=== PATIENT | male | born 1940 | race Caucasian/White ===

== ENCOUNTER 2018-08-17 10:02 | Inpatient (IN) ==
[2018-08-17] MEDS ORDERED: Sod Chloride 0.9% Inj 1,000 ML IV.SIG ONE (11:00)
--- NOTE | 2018-08-17 11:08 | ED ---
HPI General Chief complaint: Nausea/Vomiting/Diarrhea Stated complaint: Vomitting/Doctor Sent Time Seen by Provider: 08/17/18 10:37 History of Present Illness HPI Narrative: This patient complains of nausea and vomiting. Duration is 6 hours. Severity is moderate. Yesterday he had a cystoscopy under anesthesia and had multiple polyps removed. He left the outpatient urology center with a Babb catheter. He woke up this morning with vomiting. He denies abdominal pain or fever. He is not short of breath or having any chest pain or pleuritic symptoms but he does have very poor room air saturations of 81. He is significantly hypoxic. He does have COPD denies productive cough or wheezing. He no longer smokes he does use inhalers at home. No alleviating factors. No exacerbating factors. Related Data Home Medications Medication Instructions Recorded Confirmed amlodipine 10 mg PO DAILY 08/17/18 08/17/18 cephalexin [Keflex] 500 mg PO BID 08/17/18 08/17/18 clopidogrel 75 mg PO DAILY 08/17/18 08/17/18 hydrocodone-acetaminophen 1 tab PO Q4H PRN 08/17/18 08/17/18 metoprolol tartrate 25 mg PO BID 08/17/18 08/17/18 Allergies Allergy/AdvReac Type Severity Reaction Status Date / Time No Known Allergies Allergy Verified 08/17/18 11:45 Review of Systems ROS: all other systems reviewed are negative [facility] Medical History Medical History Hypertension (Acute) PVD (peripheral vascular disease) (Acute) Social History Social History Substance History: No History of Abuse Second Hand Smoke Exposure: No Smoking Status: Former smoker How Often Do You Have a Drink Containing Alcohol: Never Recent Travel in [facility] within the Last 8 Weeks: No Recent Out of Country Travel within the Last 8 Weeks: No Immunization History Tetanus Immunization: <5 Years Tetanus Immunization Year if Known: 2016 Exam Narrative Exam Narrative: GENERAL: Well-nourished, well-developed patient in no apparent distress. SKIN: Focused skin assessment reveals no rash and nodules. Skin is Warm and dry. HEAD: Atraumatic. Normocephalic. EYES: Pupils equal and round. No scleral icterus. No injection or drainage. ENT: No nasal bleeding or discharge. Mucous membranes pink and moist. NECK: Trachea midline. No JVD. CARDIOVASCULAR: Regular rate and rhythm. No murmur appreciated. RESPIRATORY: No accessory muscle use. Clear to auscultation. Breath sounds equal bilaterally. GASTROINTESTINAL: Abdomen soft, non-tender, nondistended. Hepatic and splenic margins not palpable. Babb catheter in place with some bloody urine in it. MUSCULOSKELETAL: He has had a left BKA. No clubbing. No cyanosis. No edema. NEUROLOGICAL: Awake and alert. No obvious cranial nerve deficits. Motor grossly within normal limits. Normal speech. PSYCHIATRIC: Appropriate mood and affect; insight and judgment normal. Course Initial Documented Vital Signs Temperature 98.0 F 08/17/18 10:09 Pulse Rate 112 H 08/17/18 10:09 Blood Pressure 116/74 08/17/18 10:09 Pulse Oximetry 87 L 08/17/18 10:09 Last Documented Vital Signs Temperature 98.0 F 08/17/18 10:09 Pulse Rate 109 H 08/17/18 12:48 Respiratory Rate 17 08/17/18 12:48 Blood Pressure 124/73 08/17/18 12:48 Pulse Oximetry 88 L 08/17/18 12:48 Medical Decision Making MDM Narrative Medical decision making narrative: This is a 77-year-old male who complains of nausea and vomiting but is noted to be significantly hypoxic. He has COPD and no respiratory complaints at all. On 4 L nasal cannula he is in the low 90s. IV placed and labs sent. I have ordered him a couple of nebulizer treatments. I will review his chest x-ray. I gave him IV Zofran. Patient is significantly hypoxic and will require admission. Discussed with the hospitalist. We gave consideration to PE given his recent procedure but he also has no actual dyspnea or chest pain or pleuritic symptoms. His creatinine is elevated and he cannot get a CTA. Admitting physician is considering further diagnostics. He will require admission. His labs are reviewed. Creatinine is elevated as noted. Medical Screen Exam Complete: Yes Emergency Medical Condition: Yes Differential Diagnosis Differential Diagnosis: COPD, pneumonia, PE Medical Records Medical records reviewed: Yes I reviewed the patient's medical records. Lab Data Lab results reviewed: Yes I reviewed the patient's lab results. Lab results narrative: Patient has leukocytosis and renal insufficiency Result diagrams: 08/17/18 11:08 08/17/18 11:08 Lab Results 08/17/18 08/17/18 08/17/18 Range/Units 11:08 11:08 11:08 WBC 18.9 H (4.0-11.0) th/mm3 RBC 4.95 (4.50-5.90) mil/mm3 Hgb 16.1 (13.0-17.0) gm/dL Hct 46.1 (39.0-51.0) % MCV 93.0 (80.0-100.0) fL MCH 32.5 (27.0-34.0) pg MCHC 35.0 (32.0-36.0) % RDW 14.2 (11.6-17.2) % Plt Count 117 L (150-450) th/mm3 MPV 10.6 (7.0-11.0) fL Prelim Diff (Auto) Manual diff required WBC Differential Manual diff final Seg Neuts % (Manual) 86 H (16-70) % Band Neuts % (Manual) 1 (0-6) % Lymphocytes % (Manual) 6 L (9-44) % Monocytes % (Manual) 7 (0-8) % Abs Neuts (Manual) 16.4 H (1.8-7.7) th/mm3 Differential Comment . Platelet Estimate Low L (Normal) Platelet Morphology Enlarged H (Normal) RBC Morphology Normal (Normal) PT 12.2 H (9.8-11.6) sec INR 1.2 Ratio APTT 27.5 (24.3-30.1) sec Sodium 137 (136-145) meq/L Potassium 4.5 (3.5-5.1) meq/L Chloride 101 (98-107) meq/L Carbon Dioxide 25.2 (21.0-32.0) meq/L Anion Gap 11 (5-15) meq/L BUN 34 H (7-18) mg/dL Creatinine 2.15 H (0.60-1.30) mg/dL Estimated GFR 30 L (>89) mL/min Random Glucose 117 H (74-106) mg/dL Calcium 8.3 L (8.5-10.1) mg/dL Total Bilirubin 1.4 H (0.2-1.0) mg/dL AST 41 H (15-37) U/L ALT 34 (12-78) U/L Alkaline Phosphatase 86 (45-117) U/L Total Protein 7.6 (6.4-8.2) g/dL Albumin 3.5 (3.4-5.0) g/dL Imaging Data Attestation: I personally reviewed and interpreted this imaging study as follows : My impression: Chest x-ray shows atelectasis Radiologist's impression: Chest X-Ray 08/17/18 11:00 CONCLUSION: Lower lobe atelectasis. No acute infiltrate or mass ECG Data EKG Prior to Arrival: No Attestation: I personally reviewed and interpreted this ECG as follows: Prior ECG tracings: not available for review Interpretation: EKG shows sinus rhythm at 99. No ectopic beats. No ST elevation. [place] and [place] interval are normal Discharge Plan Discharge Disposition Patient Disposition: 30 Still Patient Discharge Details Diagnosis: Acute respiratory failure with hypoxia Physicians Team ED Provider: Murphy Roberts Primary Care Provider: Collin Rodriguez Rxs /Orders / Referrals /Forms Prescriptions: No Action hydrocodone-acetaminophen 5-325 mg Tablet 1 tab PO Q4H PRN (Reason: Pain) RF: 0 clopidogrel 75 mg Tablet 75 mg PO DAILY RF: 0 amlodipine 10 mg Tablet 10 mg PO DAILY RF: 0 cephalexin [Keflex] 500 mg Capsule 500 mg PO BID RF: 0 metoprolol tartrate 25 mg Tablet 25 mg PO BID RF: 0 Discharge Interventions Interventions: Vital Signs Last Done: 08/17/18 12:48 Status ED Status: With Doctor
--- NOTE | 2018-08-17 11:30 | XR ---
EXAM DATE: 08/17/2018 11:22 AM EDT AGE/SEX: 77 years / Male INDICATIONS: Shortness of breath after procedure yesterday. CLINICAL DATA: This is the patient's initial encounter. Patient reports that signs and symptoms have been present for 1 day and indicates a pain score of 0/10. MEDICAL/SURGICAL HISTORY: Hypertension. Peripheral vascular disease. CABG. [place] [facility] [place]. . FINDINGS: There are 7 intact sternal wires. Mild pulmonary vascular congestion. Arthritic changes left glenohum eral joint. Some atelectasis both lung bases. CONCLUSION: Lower lobe atelectasis. No acute infiltrate or mass Electronically signed by: Moris Powell MD 08/17/2018 11:29 AM EDT
[2018-08-17 11:49] LABS: Activated Partial Thrombo Time 27.5 sec (24.3-30.1); INR 1.2 Ratio; Prothrombin Time 12.2 sec (9.8-11.6)
[2018-08-17 11:56] LABS: Albumin 3.5 g/dL (3.4-5.0); Anion Gap 11 meq/L (5-15); Aspartate Aminotransferase 41 U/L (15-37); Blood Urea Nitrogen 34 mg/dL (7-18); Calcium 8.3 mg/dL (8.5-10.1); Carbon Dioxide 25.2 meq/L (21.0-32.0); Chloride 101 meq/L (98-107); Glomerular Filtration Rate 30 mL/min (>89); Glucose,Random 117 mg/dL (74-106); Potassium 4.5 meq/L (3.5-5.1); Sodium 137 meq/L (136-145)
[2018-08-17 11:57] LABS: Alanine Aminotransferase 34 U/L (12-78)
[2018-08-17 11:58] LABS: Hematocrit 46.1 % (39.0-51.0); Hemoglobin 16.1 gm/dL (13.0-17.0); Mean Corpuscular Hemoglobin 32.5 pg (27.0-34.0); Mean Platelet Volume 10.6 fL (7.0-11.0); Platelet Count 117 th/mm3 (150-450); Red Blood Count 4.95 mil/mm3 (4.50-5.90); Red Cell Distribution Width 14.2 % (11.6-17.2); White Blood Count 18.9 th/mm3 (4.0-11.0)
[2018-08-17 11:59] LABS: Alkaline Phosphatase 86 U/L (45-117); Total Protein 7.6 g/dL (6.4-8.2)
[2018-08-17 12:37] LABS: Lymphocytes 6 % (9-44); Monocytes 7 % (0-8); RBC Morphology Normal (Normal)
[2018-08-17] MEDS ORDERED: Acetaminophen 325 MG Tablet PO PRN (13:54)
[2018-08-17] MEDS: Sod Chloride 0.9% Inj 1,000 ML IV.CONT SCH (15:21)
[2018-08-17] MEDS: Heparin - SQ 10,000 UNITS/ML Vial SQ SCH ×2 (15:21→21:34)
--- NOTE | 2018-08-17 16:54 | P.HPIM ---
History of Present Illness Primary Care Physician: Collin Rodriguez Chief Complaint: Nausea and vomiting History of Present Illness: The patient is a 77-year-old male with a past medical history of CAD, PVD and COPD who is presenting to the hospital with nausea and vomiting. The patient said that he had a procedure with his urologist yesterday where he was cleaned out and had some polyps removed. He was discharged home with a Babb catheter in place that was supposed to remain for 5 days. Shortly after the procedure the patient developed nausea and vomiting. He said he had 8 bouts of vomiting and he described the vomitus as black in color. He said that he was unable to eat yesterday and was unable to hold pills down yesterday. He denied any associated abdominal pain or diarrhea. He called the urologist's office and was told to go to the hospital. He came to the emergency department today and felt much better after receiving IV fluids and nausea medication. The patient states that his breathing has been bad for about the past month or so. He says his primary care doctor gave him an inhaler. He denies any cough or fevers. He denies any swelling in his lower extremities. He has been sleeping well at night. He denies any shortness of breath on exertion. He says prior to the urological procedure yesterday he required an ultrasound of the heart which he had done as an outpatient. Inpatient Certification: I certify that the inpatient services were ordered in accordance with Medicare regulations governing the order. This includes certification that hospital inpatient services are reasonable and necessary and in the case of services not specified as inpatient-only under 42 CFR 419.22(n), that they are appropriately provided as inpatient services in accordance to with the 2-midnight benchmark under 43 CFR 412.3(e) Estimated Total Length of Stay (Days): 2 Plans for Post Hospital Care: Not yet determined Review of Systems All other systems reviewed negative except as stated in HPI PMFSH - History History Provided By: Patient - Medical History Medical History: Medical History (Last Updated 08/17/18 @ 16:59 by Terrence Ramon DO) Alcoholism CAD (coronary artery disease) COPD (chronic obstructive pulmonary disease) HLD (hyperlipidemia) History of left below knee amputation Hypertension PVD (peripheral vascular disease) Systolic CHF - Surgical History Surgical History: Surgical History (Last Updated 08/17/18 @ 16:53 by Terrence Ramon DO) S/P CABG x 4 - Family History Family History: Family History (Last Updated 08/17/18 @ 16:53 by Terrence Ramon DO) Other Alcoholism Diabetes - Social History I have reviewed the patient's Social History: Yes - Tobacco History Second Hand Smoke Exposure: No Smoking Status: Former smoker - Alcohol History How Often Do You Have a Drink Containing Alcohol: Never (Former drinker) - Substance Use History Substance History: No History of Abuse - Travel History Recent Travel in the [place] Within the Last 8 Weeks: No Recent Travel Out of the Country Within the Last 8 Weeks: No - Immunization History Tetanus Immunization: <5 Years Tetanus Immunization Year if Known: 2015 Medications and Allergies Active Medications: Active Medications Acetaminophen (Tylenol) 650 mg PO Q4H PRN PRN Reason: Temp > 100.4, pain 1-2 Hydrocodone Bitart/Acetaminophen ([place] 5/325) 1 tab PO Q4H PRN PRN Reason: pain 3-10 Last Admin: 08/17/18 15:21 Dose: 1 tab Albuterol (Duoneb Neb (Prn)) 1 ampul NEB Q2HR NEB PRN PRN Reason: DYSPNEA Albuterol (Duoneb Neb (Mando)) 1 ampul NEB Q6HR WHILE AWAKE NEB [facility] Budesonide/Formoterol Fumarate (Symbicort 80/4.5 Mcg Inh) 2 puff INH BID [facility] Clopidogrel Bisulfate (Plavix) 75 mg PO DAILY [facility] Heparin Sodium (Porcine) (Heparin Inj) 5,000 units SQ Q8HR [facility] Last Admin: 08/17/18 15:21 Dose: 5,000 units Ceftriaxone Sodium 1,000 mg/ (Sodium Chloride) 100 mls @ 200 mls/hr IV.SIG Q24H [facility] Last Infusion: 08/17/18 15:56 Dose: Infused Sodium Chloride (Ns Inj) 1,000 mls @ 75 mls/hr IV.CONT .[id number] [facility] Stop: 08/18/18 16:39 Last Admin: 08/17/18 15:21 Dose: 100 mls/hr Metoprolol Tartrate (Lopressor) 25 mg PO BID [facility] Ondansetron HCl (Zofran Inj) 4 mg IV.PUSH Q6H PRN PRN Reason: NAUSEA OR VOMITING Senna/Docusate Sodium (Loyda-Colace) 1 tab PO BID MANDO Sodium Chloride (Ns Flush) 2 ml IV.FLUSH PRN PRN PRN Reason: FLUSH AFTER USING IV ACCESS Allergies Allergy/AdvReac Type Severity Reaction Status Date / Time No Known Allergies Allergy Verified 08/17/18 11:45 Home Medications Medication Instructions Recorded Confirmed Type amlodipine 10 mg PO DAILY 08/17/18 08/17/18 History budesonide-formoterol [Symbicort] 2 puff INHALATION BID 08/17/18 08/17/18 History cephalexin [Keflex] 500 mg PO BID 08/17/18 08/17/18 History clopidogrel 75 mg PO DAILY 08/17/18 08/17/18 History hydrocodone-acetaminophen 1 tab PO Q4H PRN 08/17/18 08/17/18 History metoprolol tartrate 25 mg PO BID 08/17/18 08/17/18 History Exam Vital signs: Vital Signs 08/17/18 10:09 08/17/18 10:37 08/17/18 11:13 Temperature 98.0 F Pulse Rate 112 H 98 H 103 H Respiratory Rate 20 21 Blood Pressure 116/74 141/85 H Pulse Oximetry 87 L 90 L 90 L 08/17/18 12:48 08/17/18 15:19 08/17/18 15:35 Temperature Pulse Rate 109 H 92 H Respiratory Rate 17 22 Blood Pressure 124/73 139/90 Pulse Oximetry 88 L 90 L 90 L 08/17/18 16:11 Temperature Pulse Rate 108 H Respiratory Rate 18 Blood Pressure Pulse Oximetry Intake & Output 08/16/18 08/17/18 08/17/18 18:59 06:59 18:59 Intake Total 1100 / 1100 Output Total 400 / 400 Balance 700 / 700 Weight 84.822 kg Intake: IV 1100 / 1100 NS Inj 1,000 ML @ Wide Open IV. 1000 / 1000 SIG BOLUS ONE Rx#:[id number] Rocephin Inj 1,000 MG In NS Inj 100 / 100 100 ML @ 200 mls/hr IV.SIG Q24H MANDO Rx#:[id number] Output: Urine Amount (Catheter) 400 / 400 Indwelling Urethral Catheter 400 / 400 Narrative: GENERAL: Well-nourished, well-developed patient in no apparent distress. SKIN: Focused skin assessment reveals no rash and nodules. Skin is Warm and dry. HEAD: Atraumatic. Normocephalic. EYES: Pupils equal and round. No scleral icterus. No injection or drainage. ENT: No nasal bleeding or discharge. Mucous membranes pink and moist. NECK: Trachea midline. No JVD. CARDIOVASCULAR: Regular rate and rhythm. No murmur appreciated. RESPIRATORY: No accessory muscle use. Clear to auscultation. Decreased breath sounds bilaterally. GASTROINTESTINAL: Abdomen soft, non-tender, nondistended. Hepatic and splenic margins not palpable. MUSCULOSKELETAL: He has had a left BKA. No clubbing. No cyanosis. No edema. NEUROLOGICAL: Awake and alert. No obvious cranial nerve deficits. Motor grossly within normal limits. Normal speech. PSYCHIATRIC: Appropriate mood and affect; insight and judgment normal. Results - Labs CBC & Chem 7: 08/17/18 11:08 08/17/18 11:08 Labs: Short CBC 08/17/18 Range/Units 11:08 WBC 18.9 H (4.0-11.0) th/mm3 Hgb 16.1 (13.0-17.0) gm/dL Hct 46.1 (39.0-51.0) % Plt Count 117 L (150-450) th/mm3 BMP 08/17/18 11:08 Sodium 137 Potassium 4.5 Chloride 101 Carbon Dioxide 25.2 BUN 34 H Creatinine 2.15 H Calcium 8.3 L Cardiac Enzymes 08/17/18 Range/Units 15:19 Troponin I Less than 0.02 L (0.02-0.05) ng/mL Liver Function 08/17/18 Range/Units 11:08 Total Bilirubin 1.4 H (0.2-1.0) mg/dL AST 41 H (15-37) U/L ALT 34 (12-78) U/L Alkaline Phosphatase 86 (45-117) U/L Albumin 3.5 (3.4-5.0) g/dL - Imaging Impressions Chest X-Ray 08/17/18 11:00 CONCLUSION: Lower lobe atelectasis. No acute infiltrate or mass Caprini VTE Risk Assessment Caprini VTE Risk Assessment: Moderate/High Risk (score >= 2) Caprini Risk Assessment Model: Point Value = 1 Point Value = 2 Point Value = 3 Point Value = 5 Age 41-60 Minor surgery BMI > 25 kg/m2 Swollen legs Varicose veins or History of unexplained or recurrent spontaneous Oral contraceptives or hormone replacement Sepsis (< 1 month) Serious lung disease, including pneumonia (< 1 month) Abnormal pulmonary function Acute myocardial infarction Congestive heart failure (< 1 month) History of inflammatory bowel disease Medical patient at bed rest Age 61-74 Arthroscopic surgery Major open surgery (> 45 min) Laparoscopic surgery (> 45 min) Malignancy Confined to bed (> 72 hours) Immobilizing plaster cast Central venous access Age >= 75 History of VTE Family history of VTE Factor V Leiden Prothrombin [id number] Lupus anticoagulant Anticardiolipin antibodies Elevated serum homocysteine Heparin-induced thrombocytopenia Other congenital or acquired thrombophilia Stroke (< 1 month) Elective arthroplasty Hip, pelvis, or leg fracture Acute spinal cord injury (< 1 month) Prophylaxis Regimen: Total Risk Factor Score Risk Level Prophylaxis Regimen 0-1 Low Early ambulation 2 Moderate Order ONE of the following: *Sequential Compression Device (SCD) *Heparin 5000 units SQ BID 3-4 Higher Order ONE of the following medications: *Heparin 5000 units SQ TID *Enoxaparin/Lovenox 40 mg SQ daily (WT < 150 kg, CrCl > 30 mL/min) *Enoxaparin/Lovenox 30 mg SQ daily (WT < 150 kg, CrCl > 10-29 mL/min) *Enoxaparin/Lovenox 30 mg SQ BID (WT < 150 kg, CrCl > 30 mL/min) AND/OR *Sequential Compression Device (SCD) 5 or more Highest Order ONE of the following medications: *Heparin 5000 units SQ TID (Preferred with Epidurals) *Enoxaparin/Lovenox 40 mg SQ daily (WT < 150 kg, CrCl > 30 mL/min) *Enoxaparin/Lovenox 30 mg SQ daily (WT < 150 kg, CrCl > 10-29 mL/min) *Enoxaparin/Lovenox 30 mg SQ BID (WT < 150 kg, CrCl > 30 mL/min) AND *Sequential Compression Device (SCD) Assessment and Plan - Plan Acute hypoxemic respiratory failure The patient has a history of COPD. He also has a history of heart failure. Chest x-ray indicative of pulmonary congestion. He has diminished breath sounds on exam. He denies chest pain. EKG with normal sinus rhythm. -trend troponins. -telemetry. -oxygen and standing nebs. -obtain recent echo results. -check an ABG. -V/Q scan pending. -incentive spirometry. Nausea and vomiting Started following urology procedure, suspect s/t anesthesia. Improved at this time. -Zofran as needed. -ADAT. Acute renal failure Suspect s/t dehydration from N/V. -gentle IVFs as pt has a history of CHF. -check a UA, calculate FENa. -continue Babb, follow up with urology as scheduled. -continue ceftriaxone. Was on Keflex as an outpt. Systolic CHF/CAD Echo with EF 35-40% in 2014. Recently had another echo. -call PCP for recent echo reports. -monitor volume status while on IVFs. -trend trops. -continue cardiac regimen. -check a BNP. Leukocytosis May be reactive. -follow CBC. -continue ceftriaxone. -check UA. PPx: Heparin Code Status: Full
[2018-08-17 18:09] LABS: Bacteria,Urine Occasional /hpf; Bilirubin,Urine Negative (Negative); Clarity,Urine Hazy (Clear); Color,Urine Red (Yellw/Straw); Glucose,Urine (UA) Negative (Negative); Leukocyte Esterase,Urine Large (Negative); Mucus,Urine Few /lpf (Occasional); Nitrite,Urine Negative (Negative); Specific Gravity,Urine 1.015 (1.002-1.035)
[2018-08-17 18:29] LABS: Creatinine,Urine Random 100 mg/dL (27-300)
--- NOTE | 2018-08-17 19:56 | NM ---
EXAM DATE: 08/17/2018 7:49 PM EDT AGE/SEX: 77 years / Male INDICATIONS: Hypoxia. CLINICAL DATA: This is the patient's initial encounter. Patient reports that signs and symptoms have been present for 2 days and indicates a pain score of 0/10. MEDICAL/SURGICAL HISTORY: Hypertension. Chronic obstructive pulmonary disease. Peripheral vas cular disease. Coronary artery disease, systolic congestive heart failure. . CABG x4, Left below kn ee amputation. COMPARISON: No prior exams available for comparison. DOSE: 1.6 mCi Tc99m DTPA aerosol 8.8 mCi Tc99m DTPA aerosol TECHNIQUE: Following five minutes of tidal breathing of DTPA aerosol, planar images of the lungs wer e performed in eight projections. The patient was then injected with MAA, and eight-view perfusion s can was performed. FINDINGS: There is a moderate central deposition of the radiopharmaceutical with decreased activity noted in nyla th upper lobes. There is patchy uptake in the central portions of both lungs as well. The perfusion lung scan demonstrates a mildly inhomogeneous pattern of uptake in both lungs. There is decreased activity noted in both upper lobes matching the ventilatory abnormalities. This is nonsegm ental in distribution. CONCLUSION: 1. Intermediate probability for pulmonary embolism with matching nonsegmental defects in both upper lobes. 2. There is moderate central deposition of radiopharmaceutical on the ventilatory study indicating u nderlying lung disease. Electronically signed by: Terrence Gamboa MD 08/17/2018 7:55 PM EDT
[2018-08-17] MEDS: Metoprolol Tartrate 25 MG Tablet PO SCH (21:34)
[2018-08-17] MEDS: Senna/Docusate Sodium 8.6/50 MG Tablet PO SCH (21:34)
[2018-08-17] MEDS: Budesonide-Formoterol 80/4.5 MCG 6.9 GM Inhaler INH SCH (22:06)
[2018-08-18 00:54] LABS: ABG Base Excess 0.5 mmol/L (-2-2); ABG PCO2 41 mmHg (38-42); ABG PO2 60 mmHg (61-120)
[2018-08-18] MEDS ORDERED: Heparin 10,000 UNITS/10 ML Vial (for IV use) IV.PUSH STA (01:05)
[2018-08-18 01:53] LABS: Baso # (Auto) 0.1 th/mm3 (0.0-0.2); Baso % (Auto) 0.5 % (0.0-2.0); Eos % (Auto) 0.1 % (0.0-4.0); Hemoglobin 13.8 gm/dL (13.0-17.0); Lymph # (Auto) 0.8 th/mm3 (1.0-4.8); Lymph % (Auto) 6.2 % (9.0-44.0); Mean Corpuscular HGB Conc 32.7 % (32.0-36.0); Mean Corpuscular Hemoglobin 30.8 pg (27.0-34.0); Mean Corpuscular Volume 93.9 fL (80.0-100.0); Mean Platelet Volume 10.2 fL (7.0-11.0); Mono # (Auto) 1.5 th/mm3 (0.0-0.9); Mono % (Auto) 10.7 % (0.0-8.0); Neut # (Auto) 11.2 th/mm3 (1.8-7.7); Neut % (Auto) 82.5 % (16.0-70.0); Platelet Count 99 th/mm3 (150-450); Red Blood Count 4.48 mil/mm3 (4.50-5.90); Red Cell Distribution Width 14.3 % (11.6-17.2); White Blood Count 13.6 th/mm3 (4.0-11.0)
[2018-08-18 02:03] LABS: Activated Partial Thrombo Time 37.1 sec (23.4-31.7); INR 1.2 Ratio
[2018-08-18] MEDS: Sod Chloride 0.9% Inj 1,000 ML IV.CONT SCH ×2 (02:16→16:45)
[2018-08-18 02:23] LABS: Albumin 2.6 g/dL (3.4-5.0); Calcium 7.4 mg/dL (8.5-10.1); Carbon Dioxide 25.7 meq/L (21.0-32.0); Potassium 3.8 meq/L (3.5-5.1); Total Protein 5.9 g/dL (6.4-8.2)
[2018-08-18] MEDS: Heparin Drip 25,000 UNIT/250 ML BAG IV.CONT PRN (02:34)
[2018-08-18 03:33] LABS: RBC Morphology Normal (Normal)
[2018-08-18 03:34] LABS: Platelet Morphology Normal (Normal)
[2018-08-18] MEDS: amLODIPine 10 MG Tablet PO SCH (09:05)
[2018-08-18] MEDS: Senna/Docusate Sodium 8.6/50 MG Tablet PO SCH ×2 (09:05→20:09)
[2018-08-18] MEDS: Metoprolol Tartrate 25 MG Tablet PO SCH ×2 (09:06→20:09)
[2018-08-18] MEDS: Budesonide-Formoterol 80/4.5 MCG 6.9 GM Inhaler INH SCH ×2 (09:08→21:05)
[2018-08-18 09:16] LABS: Hematocrit 42.5 % (39.0-51.0); Hemoglobin 14.5 gm/dL (13.0-17.0); Mean Corpuscular HGB Conc 34.2 % (32.0-36.0); Mean Corpuscular Hemoglobin 31.9 pg (27.0-34.0); Mean Corpuscular Volume 93.3 fL (80.0-100.0); Mean Platelet Volume 10.6 fL (7.0-11.0); Platelet Count 98 th/mm3 (150-450); Red Blood Count 4.55 mil/mm3 (4.50-5.90); Red Cell Distribution Width 14.5 % (11.6-17.2); White Blood Count 14.3 th/mm3 (4.0-11.0)
--- NOTE | 2018-08-18 09:43 | XR ---
EXAM DATE: 08/18/2018 9:38 AM EDT AGE/SEX: 77 years / Male INDICATIONS: Shortness of breath. Vomiting. CLINICAL DATA: This is the patient's subsequent encounter. Patient reports that signs and symptoms h ave been present for 2 days and indicates a pain score of 8/10. MEDICAL/SURGICAL HISTORY: . Hypertension. Peripheral vascular disease. CABG. Kidney surgery. B elow knee amputation. COMPARISON: [facility], CHEST 1V SINGLE AP, 08/17/2018. . FINDINGS: Improved diffuse interstitial prominence and persistent mild bibasilar airspace disease. Cardiomedias tinal contours are stable. Remainder of the exam is unchanged. CONCLUSION: 1. Improved positive fluid balance. 2. Persistent mild bibasilar airspace disease, presumably atelectasis. Electronically signed by: Christopher Saldana MD 08/18/2018 9:41 AM EDT
[2018-08-18] MEDS: Azithromycin 250 MG Tablet PO SCH (13:56)
--- NOTE | 2018-08-18 14:21 | P.PN ---
Subjective Interval history: Follow-up for hematuria, hypoxic respiratory failure, PE. Patient is currently resting in bed. With Ventimask on his oxygen saturation is hovering around 89- 90%. Sometimes goes to 87% when he tries to talk. He has a Babb catheter in continues to have bleeding. Patient is status post urological procedure in the outpatient setting. Physical Exam Vital signs: Vital Signs 08/17/18 15:19 08/17/18 15:35 08/17/18 16:11 Temperature Pulse Rate 92 H 108 H Respiratory Rate 22 18 Blood Pressure 139/90 Pulse Oximetry 90 L 90 L 08/17/18 17:36 08/17/18 20:00 08/18/18 00:00 Temperature 98.0 F Pulse Rate 109 H 109 H Respiratory Rate 15 Blood Pressure 132/80 Pulse Oximetry 90 L 90 L 08/18/18 00:48 08/18/18 01:42 08/18/18 01:46 Temperature Pulse Rate 102 H Respiratory Rate 25 H Blood Pressure Pulse Oximetry 93 L 94 L 95 08/18/18 04:00 08/18/18 04:08 08/18/18 07:40 Temperature 98.0 F Pulse Rate 104 H 108 H Respiratory Rate 16 Blood Pressure 130/79 Pulse Oximetry 94 L 95 94 L 08/18/18 08:00 08/18/18 09:31 08/18/18 09:36 Temperature 98.3 F Pulse Rate 113 H 112 H Respiratory Rate 26 H 18 20 Blood Pressure 144/73 H Pulse Oximetry 93 L 08/18/18 12:00 08/18/18 12:54 08/18/18 14:02 Temperature 98.5 F Pulse Rate 108 H 108 H Respiratory Rate 24 18 22 Blood Pressure 116/74 Pulse Oximetry 95 98 Intake & Output 08/17/18 08/18/18 08/18/18 18:59 06:59 18:59 Intake Total 1540 / 1540 1450 / 1450 1135 / 1135 Output Total 600 / 600 1000 / 1000 Balance 940 / 940 450 / 450 1135 / 1135 Weight 84.82 kg 84.3 kg Intake: IV 1100 / 1100 1000 / 1000 1135 / 1135 Heparin/D5W 25,000 U/250 mL 25, 135 / 135 000 unit In 250 ml @ 1,500 UNITS/HR 15 mls/hr IV.CONT TITRATE PRN Rx#:[id number] NS Inj 1,000 ML @ 75 mls/hr IV. 1000 / 1000 1000 / 1000 CONT .[id number] [facility] Rx#:[id number] NS Inj 1,000 ML @ Wide Open IV. 1000 / 1000 SIG BOLUS ONE Rx#:[id number] Rocephin Inj 1,000 MG In NS Inj 100 / 100 100 ML @ 200 mls/hr IV.SIG Q24H [facility] Rx#:[id number] Oral 440 / 440 450 / 450 Output: Urine 1000 / 1000 Urine Amount (Catheter) 600 / 600 Indwelling Urethral Catheter 600 / 600 Other: Date of Last Bowel Movement 08/17/18 08/17/18 08/17/18 # Bowel Movements 0 Weight On Admission 84.82 kg Narrative: GENERAL: Alert, oriented x3, NAD. SKIN: Warm and dry. HEAD: Normocephalic. EYES: No scleral icterus. No injection or drainage. NECK: Supple, trachea midline. No JVD or lymphadenopathy. CARDIOVASCULAR: Regular rate and rhythm without murmurs, gallops, or rubs. RESPIRATORY: Poor air entry, no appreciable wheezing. No accessory muscle use. GASTROINTESTINAL: Abdomen soft, non-tender, nondistended. MUSCULOSKELETAL: No cyanosis, or edema. : Babb catheter in place. Visible hematuria. BACK: Nontender without obvious deformity. No CVA tenderness. - Urinary Catheter Management Indwelling Urethral Catheter Cath placed during this visit: no Reason for continuing: Other continuation reason Results - Labs CBC & Chem 7: 08/18/18 08:35 08/18/18 01:39 Laboratory Results - last 24 hr 08/17/18 08/17/18 08/17/18 11:08 15:19 17:13 WBC RBC Hgb Hct MCV MCH MCHC RDW Plt Count MPV Prelim Diff (Auto) Neut % (Auto) Lymph % (Auto) [place] % (Auto) Eos % (Auto) Baso % (Auto) Neut # (Auto) Lymph # (Auto) [place] # (Auto) Eos # (Auto) Baso # (Auto) WBC Differential Diff Scan Differential Comment Platelet Estimate Platelet Morphology RBC Morphology PT INR APTT Puncture Site Patient Temperature O2 Saturation ABG pH ABG pCO2 ABG pO2 ABG HCO3 ABG O2 Content ABG Base Excess ABG Methemoglobin Alfredo Test Hemoglobin Carboxyhemoglobin O2 Delivery Device Liter Flow Inspired O2 Critical Value Sodium Potassium Chloride Carbon Dioxide Anion Gap BUN Creatinine Estimated GFR Random Glucose Calcium Prot Corrected Calcium Total Bilirubin AST ALT Alkaline Phosphatase Troponin I Less than 0.02 L B-Natriuretic Peptide 157 H Total Protein Albumin Urine Color Red Urine Clarity Hazy H Urine pH 6.0 Ur Specific [place] 1.015 Urine Protein 100 H Urine Glucose (UA) Negative Urine Ketones Negative Urine Occult Blood Large H Urine Nitrate Negative Urine Bilirubin Negative Urine Urobilinogen Less than 2 Ur Leukocyte Esterase Large H Urine RBC Urine WBC 122 H Urine WBC Clumps Rare H Urine Bacteria Occasional H Urine Mucus Few H Micro UA Comment Culture indicated Ur Microscopic Review Not Reportable Urine Culture Comments Culture indicated Ur Random Creatinine Ur Random Sodium 08/17/18 08/17/18 08/18/18 17:13 20:07 00:40 WBC RBC Hgb Hct MCV MCH MCHC RDW Plt Count MPV Prelim Diff (Auto) Neut % (Auto) Lymph % (Auto) [place] % (Auto) Eos % (Auto) Baso % (Auto) Neut # (Auto) Lymph # (Auto) [place] # (Auto) Eos # (Auto) Baso # (Auto) WBC Differential Diff Scan Differential Comment Platelet Estimate Platelet Morphology RBC Morphology PT INR APTT Puncture Site Left radial Patient Temperature 98.6 O2 Saturation 87 L* ABG pH 7.39 ABG pCO2 41 ABG pO2 60 L ABG HCO3 25 ABG O2 Content 17.2 ABG Base Excess 0.5 ABG Methemoglobin 1.1 Alfredo Test Present Hemoglobin 14.0 Carboxyhemoglobin 2.1 O2 Delivery Device Venti mask Liter Flow 6.00 Inspired O2 50 Critical Value Yes Sodium Potassium Chloride Carbon Dioxide Anion Gap BUN Creatinine Estimated GFR Random Glucose Calcium Prot Corrected Calcium Total Bilirubin AST ALT Alkaline Phosphatase Troponin I Less than 0.02 L B-Natriuretic Peptide Total Protein Albumin Urine Color Urine Clarity Urine pH Ur Specific [place] Urine Protein Urine Glucose (UA) Urine Ketones Urine Occult Blood Urine Nitrate Urine Bilirubin Urine Urobilinogen Ur Leukocyte Esterase Urine RBC Urine WBC Urine WBC Clumps Urine Bacteria Urine Mucus Micro UA Comment Ur Microscopic Review Urine Culture Comments Ur Random Creatinine 100 Ur Random Sodium 45 08/18/18 08/18/18 08/18/18 01:39 01:39 01:39 WBC 13.6 H RBC 4.48 L Hgb 13.8 D Hct 42.0 MCV 93.9 MCH 30.8 MCHC 32.7 RDW 14.3 Plt Count 99 L MPV 10.2 Prelim Diff (Auto) Slide review pending Neut % (Auto) 82.5 H Lymph % (Auto) 6.2 L [place] % (Auto) 10.7 H Eos % (Auto) 0.1 Baso % (Auto) 0.5 Neut # (Auto) 11.2 H Lymph # (Auto) 0.8 L [place] # (Auto) 1.5 H Eos # (Auto) 0.0 Baso # (Auto) 0.1 WBC Differential . Diff Scan Auto diff confirmed Differential Comment . Platelet Estimate Low L Platelet Morphology Normal RBC Morphology Normal PT 12.0 H INR 1.2 APTT 37.1 H D Puncture Site Patient Temperature O2 Saturation ABG pH ABG pCO2 ABG pO2 ABG HCO3 ABG O2 Content ABG Base Excess ABG Methemoglobin Alfredo Test Hemoglobin Carboxyhemoglobin O2 Delivery Device Liter Flow Inspired O2 Critical Value Sodium 142 Potassium 3.8 Chloride 108 H Carbon Dioxide 25.7 Anion Gap 8 BUN 29 H Creatinine 2.01 H Estimated GFR 32 L Random Glucose 113 H Calcium 7.4 L* D Prot Corrected Calcium 8.1 L Total Bilirubin 0.8 AST 26 ALT 25 Alkaline Phosphatase 65 Troponin I B-Natriuretic Peptide Total Protein 5.9 L D Albumin 2.6 L D Urine Color Urine Clarity Urine pH Ur Specific [place] Urine Protein Urine Glucose (UA) Urine Ketones Urine Occult Blood Urine Nitrate Urine Bilirubin Urine Urobilinogen Ur Leukocyte Esterase Urine RBC Urine WBC Urine WBC Clumps Urine Bacteria Urine Mucus Micro UA Comment Ur Microscopic Review Urine Culture Comments Ur Random Creatinine Ur Random Sodium 08/18/18 08/18/18 08/18/18 08:35 10:44 12:43 WBC 14.3 H RBC 4.55 Hgb 14.5 Hct 42.5 MCV 93.3 MCH 31.9 MCHC 34.2 RDW 14.5 Plt Count 98 L MPV 10.6 Prelim Diff (Auto) Neut % (Auto) Lymph % (Auto) [place] % (Auto) Eos % (Auto) Baso % (Auto) Neut # (Auto) Lymph # (Auto) [place] # (Auto) Eos # (Auto) Baso # (Auto) WBC Differential Diff Scan Differential Comment Platelet Estimate Platelet Morphology RBC Morphology PT INR APTT 187.2 H* D 106.2 H* D Puncture Site Patient Temperature O2 Saturation ABG pH ABG pCO2 ABG pO2 ABG HCO3 ABG O2 Content ABG Base Excess ABG Methemoglobin Alfredo Test Hemoglobin Carboxyhemoglobin O2 Delivery Device Liter Flow Inspired O2 Critical Value Sodium Potassium Chloride Carbon Dioxide Anion Gap BUN Creatinine Estimated GFR Random Glucose Calcium Prot Corrected Calcium Total Bilirubin AST ALT Alkaline Phosphatase Troponin I B-Natriuretic Peptide Total Protein Albumin Urine Color Urine Clarity Urine pH Ur Specific [place] Urine Protein Urine Glucose (UA) Urine Ketones Urine Occult Blood Urine Nitrate Urine Bilirubin Urine Urobilinogen Ur Leukocyte Esterase Urine RBC Urine WBC Urine WBC Clumps Urine Bacteria Urine Mucus Micro UA Comment Ur Microscopic Review Urine Culture Comments Ur Random Creatinine Ur Random Sodium Microbiology 08/17/18 17:13 Clean Catch Urine Urine Culture - Preliminary No growth in 24 hours - Imaging Impressions Pulmonary Perfusion Imaging 08/17/18 00:00 CONCLUSION: 1. Intermediate probability for pulmonary embolism with matching nonsegmental defects in both upper lobes. 2. There is moderate central deposition of radiopharmaceutical on the ventilatory study indicating underlying lung disease. Chest X-Ray 08/18/18 08:37 CONCLUSION: 1. Improved positive fluid balance. 2. Persistent mild bibasilar airspace disease, presumably atelectasis. Assessment and Plan - Plan Mr. Mendoza is a pleasant 77-year-old male with a history of CAD, PVD, COPD who presented to the emergency department on 08/17/2018 due to nausea vomiting where he vomited coffee-ground materials. Patient reports undergoing procedure with his urologist on 08/16/2018. ED evaluation indicated patient was hypoxic and tachycardic. Due to his creatinine around 2.0, patient underwent VQ scan which shows intermediate probability for PE. Patient was in hypoxic respiratory failure. Acute hypoxic respiratory failure Probable pulmonary embolism -Patient is requiring Ventimask to maintain O2 saturation around 88-90%. -Continue DuoNeb, supplemental oxygen. -Continue heparin drip. -Due to patient's hypoxia, requirement of Ventimask as well as hematuria we will transfer patient to ICU. -I discussed with ICU attending (Dr. Limon) who was kind enough to accept this patient to his service. -Patient does have leukocytosis. We will continue him on Ceftriaxone 2g and Azithromycin. Possible UTI Hematuria -Follow cultures. Pt is already on Ceftriaxone. -Consult Urology. Gastritis Probable upper GI bleed -Currently Hgb is stable. -Consider GI consult in near future if Hgb drops or hematemesis occurs. Acute kidney injury -Baseline creatinine unknown. Creatinine 2.15 --> 2.01. -Continue to monitor. Coronary artery disease status post CABG Systolic congestive heart failure, currently compensated. -2014, echo shows ejection fraction 35-40%. Full code. Heparin drip.
--- NOTE | 2018-08-18 15:25 | P.CONCC ---
History of Present Illness Service: Critical Care Medicine Reason for Consult: Hypoxemia Primary Care Provider: Collin Rodriguez Chief Complaint: Nausea and vomiting History of Present Illness: The patient arrived to ED complaining of nausea and vomiting. The day prior he had a cystoscopy under anesthesia and had multiple polyps removed. He left the outpatient urology center with a Babb catheter. He woke up this morning with vomiting. He denies abdominal pain or fever. He is not short of breath or having any chest pain or pleuritic symptoms but he does have very poor room air saturations of 81. He is significantly hypoxic. He does have COPD denies productive cough or wheezing. He no longer smokes he does use inhalers at home. No alleviating factors. No exacerbating factors. 08/18: Worsening hypoxemia today requiring NRBM. V/Q scan is medium probability for pulmonary embolism after identifying bilateral upper lobe mismatches consistent with pulmonary embolus. Transferred to [facility] for higher level of care. Heparin gtt infusing. I met him on his arrival and talk to Dr. Joseph about his care. He is presently on a Ventimask delivering 45% oxygen with saturation in the range of 90-91 percent. He is warm and well-perfused. Review of Systems No nausea anymore but he had did have a lot of vomiting with nausea the day of admission. No chest pain. He is short of breath. [facility] - History History Provided By: Patient - Medical History Medical History: Medical History (Last Updated 08/17/18 @ 16:59 by Terrence Ramon DO) Alcoholism CAD (coronary artery disease) COPD (chronic obstructive pulmonary disease) HLD (hyperlipidemia) History of left below knee amputation Hypertension PVD (peripheral vascular disease) Systolic CHF - Surgical History Surgical History: Surgical History (Last Reviewed 08/17/18 @ 16:59 by Ginna Parry RN) S/P CABG x 4 - Family History Family History: Family History (Last Updated 08/17/18 @ 16:53 by Terrence Ramon DO) Other Alcoholism Diabetes - Tobacco History Second Hand Smoke Exposure: No Tobacco Use In Past 30 Days: No Smoking Status: Former smoker Tobacco Type: Cigarettes - Alcohol History How Often Do You Have a Drink Containing Alcohol: Never (Former drinker) - Substance Use History Substance History: No History of Abuse - Substance Use Type Alcohol Status: Sustained Remission Route Used: By Mouth - Travel History Recent Travel in the [facility] Within the Last 8 Weeks: No Recent Travel Out of the Country Within the Last 8 Weeks: No - Immunization History Tetanus Immunization: <5 Years Tetanus Immunization Year if Known: 2015 Hx Influenza Vaccine This Season: Yes Medications and Allergies Active Medications: Active Medications Acetaminophen (Tylenol) 650 mg PO Q4H PRN PRN Reason: Temp > 100.4, pain 1-2 Hydrocodone Bitart/Acetaminophen ([place] 5/325) 1 tab PO Q4H PRN PRN Reason: pain 3-10 Last Admin: 08/18/18 09:06 Dose: 1 tab Albuterol (Duoneb Neb (Prn)) 1 ampul NEB Q2HR NEB PRN PRN Reason: DYSPNEA Last Admin: 08/18/18 01:39 Dose: 1 ampul Albuterol (Duoneb Neb (Mando)) 1 ampul NEB Q6HR WHILE AWAKE NEB [facility] Last Admin: 08/18/18 12:51 Dose: 1 ampul Amlodipine Besylate (Norvasc) 10 mg PO DAILY [facility] Last Admin: 08/18/18 09:05 Dose: 10 mg Azithromycin (Zithromax) 500 mg PO DAILY [facility] Last Admin: 08/18/18 13:56 Dose: 500 mg Budesonide/Formoterol Fumarate (Symbicort 80/4.5 Mcg Inh) 2 puff INH BID [facility] Last Admin: 08/18/18 09:08 Dose: 2 puff Heparin Sodium/Dextrose (Heparin/D5w 25,000 U/250 Ml) 25,000 unit in 250 mls @ 15 mls/hr IV.CONT TITRATE PRN; Protocol PRN Reason: Per Protocol Last Titration: 08/18/18 11:37 Dose: 0 units/hr, 0 mls/hr Ceftriaxone Sodium 2,000 mg/ (Sodium Chloride) 100 mls @ 200 mls/hr IV.SIG Q24H [facility] Last Infusion: 08/18/18 14:26 Dose: Infused Metoprolol Tartrate (Lopressor) 25 mg PO BID [facility] Last Admin: 08/18/18 09:06 Dose: 25 mg Ondansetron HCl (Zofran Inj) 4 mg IV.PUSH Q6H PRN PRN Reason: NAUSEA OR VOMITING Senna/Docusate Sodium (Loyda-Colace) 1 tab PO BID [facility] Last Admin: 08/18/18 09:05 Dose: 1 tab Sodium Chloride (Ns Flush) 2 ml IV.FLUSH PRN PRN PRN Reason: FLUSH AFTER USING IV ACCESS Allergies Allergy/AdvReac Type Severity Reaction Status Date / Time No Known Allergies Allergy Verified 08/17/18 11:45 Home Medications Medication Instructions Recorded Confirmed Type amlodipine 10 mg PO DAILY 08/17/18 08/17/18 History budesonide-formoterol [Symbicort] 2 puff INHALATION BID 08/17/18 08/17/18 History cephalexin [Keflex] 500 mg PO BID 08/17/18 08/17/18 History clopidogrel 75 mg PO DAILY 08/17/18 08/17/18 History hydrocodone-acetaminophen 1 tab PO Q4H PRN 08/17/18 08/17/18 History metoprolol tartrate 25 mg PO BID 08/17/18 08/17/18 History Physical Exam Vital signs: Vital Signs 08/17/18 15:35 08/17/18 16:11 08/17/18 17:36 Temperature Pulse Rate 108 H Respiratory Rate 18 Blood Pressure Pulse Oximetry 90 L 90 L 08/17/18 20:00 08/18/18 00:00 08/18/18 00:48 Temperature 98.0 F Pulse Rate 109 H 109 H Respiratory Rate 15 Blood Pressure 132/80 Pulse Oximetry 90 L 93 L 08/18/18 01:42 08/18/18 01:46 08/18/18 04:00 Temperature 98.0 F Pulse Rate 102 H 104 H Respiratory Rate 25 H 16 Blood Pressure 130/79 Pulse Oximetry 94 L 95 94 L 08/18/18 04:08 08/18/18 07:40 08/18/18 08:00 Temperature 98.3 F Pulse Rate 108 H 113 H Respiratory Rate 26 H Blood Pressure 144/73 H Pulse Oximetry 95 94 L 93 L 08/18/18 09:31 08/18/18 09:36 08/18/18 12:00 Temperature 98.5 F Pulse Rate 112 H 108 H Respiratory Rate 18 20 24 Blood Pressure 116/74 Pulse Oximetry 95 08/18/18 12:54 08/18/18 14:02 Temperature Pulse Rate 108 H Respiratory Rate 18 22 Blood Pressure Pulse Oximetry 98 Intake & Output 08/17/18 08/18/18 08/18/18 18:59 06:59 18:59 Intake Total 1540 / 1540 1450 / 1450 1235 / 1235 Output Total 600 / 600 1000 / 1000 Balance 940 / 940 450 / 450 1235 / 1235 Weight 84.82 kg 84.3 kg Intake: IV 1100 / 1100 1000 / 1000 1235 / 1235 Heparin/D5W 25,000 U/250 mL 25, 135 / 135 000 unit In 250 ml @ 1,500 UNITS/HR 15 mls/hr IV.CONT TITRATE PRN Rx#:[id number] NS Inj 1,000 ML @ 75 mls/hr IV. 1000 / 1000 1000 / 1000 CONT .[id number] [facility] Rx#:[id number] NS Inj 1,000 ML @ Wide Open IV. 1000 / 1000 SIG BOLUS ONE Rx#:[id number] Rocephin Inj 1,000 MG In NS Inj 100 / 100 100 ML @ 200 mls/hr IV.SIG Q24H [facility] Rx#:[id number] Rocephin Inj 2,000 MG In NS Inj 100 / 100 100 ML @ 200 mls/hr IV.SIG Q24H [facility] Rx#:[id number] Oral 440 / 440 450 / 450 Output: Urine 1000 / 1000 Urine Amount (Catheter) 600 / 600 Indwelling Urethral Catheter 600 / 600 Other: Date of Last Bowel Movement 08/17/18 08/17/18 08/17/18 # Bowel Movements 0 Weight On Admission 84.82 kg Narrative: GENERAL: Frail-appearing elderly patient in mild respiratory distress. SKIN: Focused skin assessment reveals no rash or nodules. Skin is Warm and dry. HEAD: Atraumatic. Normocephalic. EYES: Pupils equal and round. No conjunctival icterus. No injection or drainage. ENT: No nasal bleeding or discharge. Mucous membranes pink and moist. NECK: Trachea midline. Airway widely patent, no stridor or obstructive noises. CARDIOVASCULAR: Regular rate and rhythm. No murmur appreciated. Neck veins are flat. RESPIRATORY: Minimal accessory muscle use. No wheezes. Decreased breath sounds bilaterally. GASTROINTESTINAL: Abdomen soft, non-tender, nondistended. No guarding, bowel sounds active MUSCULOSKELETAL: He has had a left BKA. No clubbing. No cyanosis. No edema. Nailbeds are pink. NEUROLOGICAL: Awake and alert. No obvious cranial nerve deficits. Motor grossly within normal limits. Normal speech. Oriented x3. PSYCHIATRIC: Appropriate mood and affect; insight and judgment normal. Very anxious. - Urinary Catheter Management Indwelling Urethral Catheter Cath placed during this visit: no Reason for continuing: Other continuation reason Assessment and Plan - Assessment and Plan Plan: Assessment and Plan - Plan Acute hypoxemic respiratory failure. COPD, not exacerbated -oxygen delivery Via Ventimask and standing nebs. -check an ABG. -V/Q scan pending -medium probability -incentive spirometry. Nausea and vomiting Started following urology procedure, suspect s/t anesthesia. Improved at this time. -Zofran as needed. -ADAT. Acute renal failure Suspect s/t dehydration from N/V. -gentle IVFs as pt has a history of CHF. -continue Babb, follow up with urology as scheduled. -continue ceftriaxone. Was on Keflex as an outpt. Chronic systolic heart failure Echo with EF 35-40% in 2014. Recently had another echo. -monitor volume status while on IVFs. -trend trops. -continue cardiac regimen. -check a BNP. Leukocytosis May be reactive. -follow CBC. -continue ceftriaxone. -check UA. PPx: Heparin infusion Code Status: Full Overall impression: This gentleman is critically ill with marginal pulmonary and cardiac status. He has been further stressed by an acute exacerbation of his chronic hypoxemic respiratory failure and may well require intubation and mechanical ventilation. We will treat the mismatches on his VQ scan as acute emboli and continue full anticoagulation with heparin. He has some minor hematuria related to recent bladder biopsies and arrived to the hospital with a Babb catheter in place. Critical care 38 minutes aside from procedures.
[2018-08-18 17:39] LABS: Hemoglobin 14.1 gm/dL (13.0-17.0)
--- NOTE | 2018-08-18 17:46 | P.CONURO ---
History of Present Illness Service: Consult date: 08/18/18 Requesting Physician: Symone Joseph Reason for Consult: Hematuria Primary Care Provider: Collin Rodriguez Chief Complaint: Nausea and vomiting History of Present Illness: 77-year-old gentleman with multiple medical problems who is status post what appears to be cystoscopy and transurethral resection of multiple bladder tumors on August 16 of this year by Dr. Berumen. Patient presented to the emergency room with complaints of nausea and vomiting and was noted to be hypoxic. Further workup included a VQ scan consistent with intermediate probability of pulmonary embolus and patient started on heparin therapy. Subsequent to this the patient was noted to have gross hematuria and thus a urology consult was placed. PTT level was 187.2. At the time of consultation the patient was resting comfortably and in no acute distress. He did have an indwelling Babb catheter draining medium red urine without evidence of clots. Review of Systems All other systems reviewed negative except as stated in HPI PMFSH - History History Provided By: Patient - Medical History Medical History: Medical History (Last Updated 08/17/18 @ 16:59 by Terrence Ramon DO) Alcoholism CAD (coronary artery disease) COPD (chronic obstructive pulmonary disease) HLD (hyperlipidemia) History of left below knee amputation Hypertension PVD (peripheral vascular disease) Systolic CHF - Surgical History Surgical History: Surgical History (Last Reviewed 08/17/18 @ 16:59 by Ginna Parry RN) S/P CABG x 4 - Family History Family History: Family History (Last Updated 08/17/18 @ 16:53 by Terrence Ramon DO) Other Alcoholism Diabetes - Tobacco History Second Hand Smoke Exposure: No Tobacco Use In Past 30 Days: No Smoking Status: Former smoker Tobacco Type: Cigarettes - Alcohol History How Often Do You Have a Drink Containing Alcohol: Never (Former drinker) - Substance Use History Substance History: No History of Abuse - Substance Use Type Alcohol Status: Sustained Remission Route Used: By Mouth - Travel History Recent Travel in the [place] Within the Last 8 Weeks: No Recent Travel Out of the Country Within the Last 8 Weeks: No - Immunization History Tetanus Immunization: <5 Years Tetanus Immunization Year if Known: 2015 Hx Influenza Vaccine This Season: Yes Medications and Allergies Active Medications: Active Medications Acetaminophen (Tylenol) 650 mg PO Q4H PRN PRN Reason: Temp > 100.4, pain 1-2 Hydrocodone Bitart/Acetaminophen ([place] 5/325) 1 tab PO Q4H PRN PRN Reason: pain 3-10 Last Admin: 08/18/18 16:48 Dose: 1 tab Albuterol (Duoneb Neb (Prn)) 1 ampul NEB Q2HR NEB PRN PRN Reason: DYSPNEA Last Admin: 08/18/18 01:39 Dose: 1 ampul Albuterol (Duoneb Neb (Mando)) 1 ampul NEB Q6HR WHILE AWAKE NEB [facility] Last Admin: 08/18/18 12:51 Dose: 1 ampul Amlodipine Besylate (Norvasc) 10 mg PO DAILY [facility] Last Admin: 08/18/18 09:05 Dose: 10 mg Azithromycin (Zithromax) 500 mg PO DAILY [facility] Last Admin: 08/18/18 13:56 Dose: 500 mg Budesonide/Formoterol Fumarate (Symbicort 80/4.5 Mcg Inh) 2 puff INH BID [facility] Last Admin: 08/18/18 09:08 Dose: 2 puff Heparin Sodium/Dextrose (Heparin/D5w 25,000 U/250 Ml) 25,000 unit in 250 mls @ 15 mls/hr IV.CONT TITRATE PRN; Protocol PRN Reason: Per Protocol Last Titration: 08/18/18 16:43 Dose: 1,100 units/hr, 11 mls/hr Ceftriaxone Sodium 2,000 mg/ (Sodium Chloride) 100 mls @ 200 mls/hr IV.SIG Q24H [facility] Last Infusion: 08/18/18 14:26 Dose: Infused Sodium Chloride (Ns Inj) 1,000 mls @ 50 mls/hr IV.CONT .Q20H [facility] Metoprolol Tartrate (Lopressor) 25 mg PO BID [facility] Last Admin: 08/18/18 09:06 Dose: 25 mg Ondansetron HCl (Zofran Inj) 4 mg IV.PUSH Q6H PRN PRN Reason: NAUSEA OR VOMITING Senna/Docusate Sodium (Loyda-Colace) 1 tab PO BID [facility] Last Admin: 08/18/18 09:05 Dose: 1 tab Sodium Chloride (Ns Flush) 2 ml IV.FLUSH PRN PRN PRN Reason: FLUSH AFTER USING IV ACCESS Allergies Allergy/AdvReac Type Severity Reaction Status Date / Time No Known Allergies Allergy Verified 08/17/18 11:45 Home Medications Medication Instructions Recorded Confirmed Type amlodipine 10 mg PO DAILY 08/17/18 08/17/18 History budesonide-formoterol [Symbicort] 2 puff INHALATION BID 08/17/18 08/17/18 History cephalexin [Keflex] 500 mg PO BID 08/17/18 08/17/18 History clopidogrel 75 mg PO DAILY 08/17/18 08/17/18 History hydrocodone-acetaminophen 1 tab PO Q4H PRN 08/17/18 08/17/18 History metoprolol tartrate 25 mg PO BID 08/17/18 08/17/18 History Physical Exam Vital Signs - 24 hr 08/17/18 20:00 08/18/18 00:00 08/18/18 00:48 Temperature 98.0 F Pulse Rate 109 H 109 H Respiratory Rate 15 Blood Pressure 132/80 Pulse Oximetry 90 L 93 L 08/18/18 01:42 08/18/18 01:46 08/18/18 04:00 Temperature 98.0 F Pulse Rate 102 H 104 H Respiratory Rate 25 H 16 Blood Pressure 130/79 Pulse Oximetry 94 L 95 94 L 08/18/18 04:08 08/18/18 07:40 08/18/18 08:00 Temperature 98.3 F Pulse Rate 108 H 113 H Respiratory Rate 26 H Blood Pressure 144/73 H Pulse Oximetry 95 94 L 93 L 08/18/18 09:31 08/18/18 09:36 08/18/18 12:00 Temperature 98.5 F Pulse Rate 112 H 108 H Respiratory Rate 18 20 24 Blood Pressure 116/74 Pulse Oximetry 95 08/18/18 12:54 08/18/18 14:02 08/18/18 15:00 Temperature 97.9 F Pulse Rate 108 H 115 H Respiratory Rate 18 22 29 H Blood Pressure 153/91 H Pulse Oximetry 98 94 L 08/18/18 15:54 08/18/18 16:00 Temperature Pulse Rate 106 H Respiratory Rate 13 Blood Pressure 139/80 Pulse Oximetry 92 L 92 L Physical Exam: GENERAL: This is a well-nourished, well-developed patient, in no apparent distress. SKIN: No rashes, ecchymoses or lesions. Cool and dry. HEAD: Atraumatic. Normocephalic. No temporal or scalp tenderness. EYES: Pupils equal round and reactive. Extraocular motions intact. No scleral icterus. No injection or drainage. ENT: Nose without bleeding, purulent drainage or septal hematoma. Throat without erythema, tonsillar hypertrophy or exudate. Uvula midline. Airway patent. NECK: Trachea midline. No JVD or lymphadenopathy. Supple, nontender GASTROINTESTINAL: Abdomen soft, non-tender, nondistended. No hepato-splenomegaly , or palpable masses. No guarding. GENITOURINARY: Babb catheter draining medium red urine without clots, bladder not distended. MUSCULOSKELETAL: Consistent with left below the knee amputation NEUROLOGICAL: Awake and alert. Cranial nerves II through XII intact. Motor and sensory grossly within normal limits. Five out of 5 muscle strength in all muscle groups. Normal speech. Laboratory Results - last 24 hr 08/17/18 08/17/18 08/17/18 11:08 17:13 17:13 WBC RBC Hgb Hct MCV MCH MCHC RDW Plt Count MPV Prelim Diff (Auto) Neut % (Auto) Lymph % (Auto) [place] % (Auto) Eos % (Auto) Baso % (Auto) Neut # (Auto) Lymph # (Auto) [place] # (Auto) Eos # (Auto) Baso # (Auto) WBC Differential Diff Scan Differential Comment Platelet Estimate Platelet Morphology RBC Morphology PT INR APTT Puncture Site Patient Temperature O2 Saturation ABG pH ABG pCO2 ABG pO2 ABG HCO3 ABG O2 Content ABG Base Excess ABG Methemoglobin Alfredo Test Hemoglobin Carboxyhemoglobin O2 Delivery Device Liter Flow Inspired O2 Critical Value Sodium Potassium Chloride Carbon Dioxide Anion Gap BUN Creatinine Estimated GFR Random Glucose Calcium Prot Corrected Calcium Total Bilirubin AST ALT Alkaline Phosphatase Troponin I B-Natriuretic Peptide 157 H Total Protein Albumin Urine Color Red Urine Clarity Hazy H Urine pH 6.0 Ur Specific [place] 1.015 Urine Protein 100 H Urine Glucose (UA) Negative Urine Ketones Negative Urine Occult Blood Large H Urine Nitrate Negative Urine Bilirubin Negative Urine Urobilinogen Less than 2 Ur Leukocyte Esterase Large H Urine RBC Urine WBC 122 H Urine WBC Clumps Rare H Urine Bacteria Occasional H Urine Mucus Few H Micro UA Comment Culture indicated Ur Microscopic Review Not Reportable Urine Culture Comments Culture indicated Ur Random Creatinine 100 Ur Random Sodium 45 08/17/18 08/18/18 08/18/18 20:07 00:40 01:39 WBC 13.6 H RBC 4.48 L Hgb 13.8 D Hct 42.0 MCV 93.9 MCH 30.8 MCHC 32.7 RDW 14.3 Plt Count 99 L MPV 10.2 Prelim Diff (Auto) Slide review pending Neut % (Auto) 82.5 H Lymph % (Auto) 6.2 L [place] % (Auto) 10.7 H Eos % (Auto) 0.1 Baso % (Auto) 0.5 Neut # (Auto) 11.2 H Lymph # (Auto) 0.8 L [place] # (Auto) 1.5 H Eos # (Auto) 0.0 Baso # (Auto) 0.1 WBC Differential . Diff Scan Auto diff confirmed Differential Comment . Platelet Estimate Low L Platelet Morphology Normal RBC Morphology Normal PT INR APTT Puncture Site Left radial Patient Temperature 98.6 O2 Saturation 87 L* ABG pH 7.39 ABG pCO2 41 ABG pO2 60 L ABG HCO3 25 ABG O2 Content 17.2 ABG Base Excess 0.5 ABG Methemoglobin 1.1 Alfredo Test Present Hemoglobin 14.0 Carboxyhemoglobin 2.1 O2 Delivery Device Venti mask Liter Flow 6.00 Inspired O2 50 Critical Value Yes Sodium Potassium Chloride Carbon Dioxide Anion Gap BUN Creatinine Estimated GFR Random Glucose Calcium Prot Corrected Calcium Total Bilirubin AST ALT Alkaline Phosphatase Troponin I Less than 0.02 L B-Natriuretic Peptide Total Protein Albumin Urine Color Urine Clarity Urine pH Ur Specific [place] Urine Protein Urine Glucose (UA) Urine Ketones Urine Occult Blood Urine Nitrate Urine Bilirubin Urine Urobilinogen Ur Leukocyte Esterase Urine RBC Urine WBC Urine WBC Clumps Urine Bacteria Urine Mucus Micro UA Comment Ur Microscopic Review Urine Culture Comments Ur Random Creatinine Ur Random Sodium 08/18/18 08/18/18 08/18/18 01:39 01:39 08:35 WBC 14.3 H RBC 4.55 Hgb 14.5 Hct 42.5 MCV 93.3 MCH 31.9 MCHC 34.2 RDW 14.5 Plt Count 98 L MPV 10.6 Prelim Diff (Auto) Neut % (Auto) Lymph % (Auto) [place] % (Auto) Eos % (Auto) Baso % (Auto) Neut # (Auto) Lymph # (Auto) [place] # (Auto) Eos # (Auto) Baso # (Auto) WBC Differential Diff Scan Differential Comment Platelet Estimate Platelet Morphology RBC Morphology PT 12.0 H INR 1.2 APTT 37.1 H D Puncture Site Patient Temperature O2 Saturation ABG pH ABG pCO2 ABG pO2 ABG HCO3 ABG O2 Content ABG Base Excess ABG Methemoglobin Alfredo Test Hemoglobin Carboxyhemoglobin O2 Delivery Device Liter Flow Inspired O2 Critical Value Sodium 142 Potassium 3.8 Chloride 108 H Carbon Dioxide 25.7 Anion Gap 8 BUN 29 H Creatinine 2.01 H Estimated GFR 32 L Random Glucose 113 H Calcium 7.4 L* D Prot Corrected Calcium 8.1 L Total Bilirubin 0.8 AST 26 ALT 25 Alkaline Phosphatase 65 Troponin I B-Natriuretic Peptide Total Protein 5.9 L D Albumin 2.6 L D Urine Color Urine Clarity Urine pH Ur Specific [place] Urine Protein Urine Glucose (UA) Urine Ketones Urine Occult Blood Urine Nitrate Urine Bilirubin Urine Urobilinogen Ur Leukocyte Esterase Urine RBC Urine WBC Urine WBC Clumps Urine Bacteria Urine Mucus Micro UA Comment Ur Microscopic Review Urine Culture Comments Ur Random Creatinine Ur Random Sodium 08/18/18 08/18/18 08/18/18 10:44 12:43 15:17 WBC RBC Hgb Hct MCV MCH MCHC RDW Plt Count MPV Prelim Diff (Auto) Neut % (Auto) Lymph % (Auto) [place] % (Auto) Eos % (Auto) Baso % (Auto) Neut # (Auto) Lymph # (Auto) [place] # (Auto) Eos # (Auto) Baso # (Auto) WBC Differential Diff Scan Differential Comment Platelet Estimate Platelet Morphology RBC Morphology PT INR APTT 187.2 H* D 106.2 H* D 36.7 H D Puncture Site Patient Temperature O2 Saturation ABG pH ABG pCO2 ABG pO2 ABG HCO3 ABG O2 Content ABG Base Excess ABG Methemoglobin Alfredo Test Hemoglobin Carboxyhemoglobin O2 Delivery Device Liter Flow Inspired O2 Critical Value Sodium Potassium Chloride Carbon Dioxide Anion Gap BUN Creatinine Estimated GFR Random Glucose Calcium Prot Corrected Calcium Total Bilirubin AST ALT Alkaline Phosphatase Troponin I B-Natriuretic Peptide Total Protein Albumin Urine Color Urine Clarity Urine pH Ur Specific [place] Urine Protein Urine Glucose (UA) Urine Ketones Urine Occult Blood Urine Nitrate Urine Bilirubin Urine Urobilinogen Ur Leukocyte Esterase Urine RBC Urine WBC Urine WBC Clumps Urine Bacteria Urine Mucus Micro UA Comment Ur Microscopic Review Urine Culture Comments Ur Random Creatinine Ur Random Sodium 08/18/18 17:20 WBC RBC Hgb 14.1 Hct 41.0 MCV MCH MCHC RDW Plt Count MPV Prelim Diff (Auto) Neut % (Auto) Lymph % (Auto) [place] % (Auto) Eos % (Auto) Baso % (Auto) Neut # (Auto) Lymph # (Auto) [place] # (Auto) Eos # (Auto) Baso # (Auto) WBC Differential Diff Scan Differential Comment Platelet Estimate Platelet Morphology RBC Morphology PT INR APTT Puncture Site Patient Temperature O2 Saturation ABG pH ABG pCO2 ABG pO2 ABG HCO3 ABG O2 Content ABG Base Excess ABG Methemoglobin Alfredo Test Hemoglobin Carboxyhemoglobin O2 Delivery Device Liter Flow Inspired O2 Critical Value Sodium Potassium Chloride Carbon Dioxide Anion Gap BUN Creatinine Estimated GFR Random Glucose Calcium Prot Corrected Calcium Total Bilirubin AST ALT Alkaline Phosphatase Troponin I B-Natriuretic Peptide Total Protein Albumin Urine Color Urine Clarity Urine pH Ur Specific [place] Urine Protein Urine Glucose (UA) Urine Ketones Urine Occult Blood Urine Nitrate Urine Bilirubin Urine Urobilinogen Ur Leukocyte Esterase Urine RBC Urine WBC Urine WBC Clumps Urine Bacteria Urine Mucus Micro UA Comment Ur Microscopic Review Urine Culture Comments Ur Random Creatinine Ur Random Sodium Microbiology 08/17/18 17:13 Urine Culture - Preliminary Clean Catch Urine No growth in 24 hours Result Diagrams: 08/18/18 17:20 08/18/18 01:39 Imaging: ITS Impressions Pulmonary Perfusion Imaging 08/17/18 00:00 CONCLUSION: 1. Intermediate probability for pulmonary embolism with matching nonsegmental defects in both upper lobes. 2. There is moderate central deposition of radiopharmaceutical on the ventilatory study indicating underlying lung disease. Chest X-Ray 08/18/18 08:37 CONCLUSION: 1. Improved positive fluid balance. 2. Persistent mild bibasilar airspace disease, presumably atelectasis. Assessment and Plan - Assessment (1) Gross hematuria Code(s): R31.0 - Gross hematuria Status: Acute - Plan Urologic impression: 1. Status post recent cystoscopy with TURBT (multiple) 2. Gross hematuria related to recent bladder surgery and placement on anticoagulation therapy with heparin Recommendations: 1. Continue with Babb catheter to gravity drainage 2. Expect ongoing hematuria while on heparinization 3. Will likely require indwelling Babb catheter for an extended period time and would not remove until urine remains clear yellow in appearance for a minimum of 48 hours. 4. Nothing further to add at this time.
--- NOTE | 2018-08-18 20:34 | ECG ---
Date Performed: 08/17/2018 Time Performed: 11:25:42 PTAGE: 77 years EKG: Sinus rhythm MINIMAL ST DEPRESSION ABNORMAL QRS-T ANGLE ABNORMAL ECG PREVIOUS TRACING : 02/27/2015 17.39 Compared to previous tracing, Minor Nonspecific ST abnormal ity improvement DOCTOR: Aj Reese Interpretating Date/Time 08/18/2018 20:32:47
[2018-08-19] MEDS: Heparin Drip 25,000 UNIT/250 ML BAG IV.CONT PRN (02:43)
[2018-08-19 05:39] LABS: Hematocrit 41.6 % (39.0-51.0); Hemoglobin 14.2 gm/dL (13.0-17.0); Mean Corpuscular Hemoglobin 32.1 pg (27.0-34.0); Mean Corpuscular Volume 94.1 fL (80.0-100.0); Mean Platelet Volume 10.4 fL (7.0-11.0); Platelet Count 95 th/mm3 (150-450); Red Blood Count 4.42 mil/mm3 (4.50-5.90); Red Cell Distribution Width 14.1 % (11.6-17.2); White Blood Count 10.7 th/mm3 (4.0-11.0)
[2018-08-19 05:56] LABS: Calcium 7.9 mg/dL (8.5-10.1); Carbon Dioxide 26.7 meq/L (21.0-32.0); Potassium 3.8 meq/L (3.5-5.1)
[2018-08-19] MEDS: Azithromycin 250 MG Tablet PO SCH (08:47)
[2018-08-19] MEDS: Senna/Docusate Sodium 8.6/50 MG Tablet PO SCH ×2 (08:47→21:19)
[2018-08-19] MEDS: Metoprolol Tartrate 25 MG Tablet PO SCH ×2 (08:47→21:19)
[2018-08-19] MEDS: amLODIPine 10 MG Tablet PO SCH (08:47)
[2018-08-19] MEDS: Budesonide-Formoterol 80/4.5 MCG 6.9 GM Inhaler INH SCH ×2 (09:01→21:19)
[2018-08-19] MEDS: Sod Chloride 0.9% Inj 1,000 ML IV.CONT SCH (12:55)
--- NOTE | 2018-08-19 15:59 | P.PNCC ---
Subjective Subjective Remarks/Hospital Course: The patient arrived to ED complaining of nausea and vomiting. The day prior he had a cystoscopy under anesthesia and had multiple polyps removed. He left the outpatient urology center with a Babb catheter. He woke up this morning with vomiting. He denies abdominal pain or fever. He is not short of breath or having any chest pain or pleuritic symptoms but he does have very poor room air saturations of 81. He is significantly hypoxic. He does have COPD denies productive cough or wheezing. He no longer smokes he does use inhalers at home. No alleviating factors. No exacerbating factors. 08/18: Worsening hypoxemia today requiring NRBM. V/Q scan is medium probability for pulmonary embolism after identifying bilateral upper lobe mismatches consistent with pulmonary embolus. Transferred to [facility] for higher level of care. Heparin gtt infusing. I met him on his arrival and talk to Dr. Joseph about his care. He is presently on a Ventimask delivering 45% oxygen with saturation in the range of 90-91 percent. He is warm and well-perfused. 08/19: Breathing with better comfort today. Down to 4 L nasal cannula. Wine colored urine persists, unsurprising considering full anticoagulation following bladder biopsy. I am reluctant to convert to an oral anticoagulant until such time as we have a better feel for the trends of his bladder bleeding. Objective Vital Signs / I&O: Vital Signs 08/18/18 16:00 08/18/18 20:00 08/18/18 21:23 Temperature 98.4 F Pulse Rate 106 H 108 H 101 H Respiratory Rate 13 20 14 Blood Pressure 139/80 134/81 Pulse Oximetry 92 L 91 L 95 08/19/18 00:00 08/19/18 04:00 08/19/18 07:56 Temperature 98.4 F 98.2 F Pulse Rate 100 H 105 H 118 H Respiratory Rate 13 19 16 Blood Pressure 127/79 146/81 H Pulse Oximetry 94 L 95 94 L 08/19/18 08:00 08/19/18 09:30 08/19/18 12:00 Temperature 98.1 F 98.3 F Pulse Rate 115 H 108 H Respiratory Rate 25 H 20 27 H Blood Pressure 151/90 H 138/80 Pulse Oximetry 94 L 93 L Intake & Output 08/18/18 08/19/18 08/19/18 18:59 06:59 18:59 Intake Total 1475 / 1475 375 / 375 1000 / 1000 Output Total 1100 / 1100 1825 / 1825 Balance 375 / 375 -1450 / -1450 1000 / 1000 Weight 83.6 kg Intake: IV 1235 / 1235 135 / 135 1000 / 1000 Heparin/D5W 25,000 U/250 mL 25, 135 / 135 135 / 135 000 unit In 250 ml @ 1,500 UNITS/HR 15 mls/hr IV.CONT TITRATE PRN Rx#:[id number] NS Inj 1,000 ML @ 50 mls/hr IV. 1000 / 1000 1000 / 1000 CONT .Q20H FLO Rx#:[id number] Rocephin Inj 2,000 MG In NS Inj 100 / 100 100 ML @ 200 mls/hr IV.SIG Q24H FLO Rx#:[id number] Oral 240 / 240 240 / 240 Output: Urine 1000 / 1000 Urine Amount (Catheter) 1100 / 1100 825 / 825 Indwelling Urethral Catheter 1100 / 1100 825 / 825 Other: Date of Last Bowel Movement 08/17/18 08/19/18 08/19/18 # Bowel Movements 0 1 Result Diagrams: 08/19/18 04:52 08/19/18 04:52 Objective Remarks: Narrative: GENERAL: Frail-appearing elderly patient in no respiratory distress. SKIN: Focused skin assessment reveals no rash or nodules. Skin is Warm and dry. HEAD: Atraumatic. Normocephalic. EYES: Pupils equal and round. No conjunctival icterus. No injection or drainage. ENT: No nasal bleeding or discharge. Mucous membranes pink and moist. NECK: Trachea midline. Airway widely patent, no stridor or obstructive noises. CARDIOVASCULAR: Regular rate and rhythm. No murmur appreciated. Neck veins are flat. RESPIRATORY: Minimal accessory muscle use. No wheezes. Decreased breath sounds bilaterally. GASTROINTESTINAL: Abdomen soft, non-tender, nondistended. No guarding, bowel sounds active MUSCULOSKELETAL: He has had a left BKA. No clubbing. No cyanosis. No edema. Nailbeds are pink. NEUROLOGICAL: Awake and alert. No obvious cranial nerve deficits. Motor grossly within normal limits. Normal speech. Oriented x3. PSYCHIATRIC: Appropriate mood and affect; insight and judgment normal. Very anxious. Assessment and Plan - Assessment and Plan Plan: Assessment and Plan - Plan Acute hypoxemic respiratory failure. COPD, not exacerbated -oxygen delivery Via Ventimask and standing nebs. -check an ABG. -V/Q scan pending -medium probability -incentive spirometry. -4 L NC Nausea and vomiting Started following urology procedure, suspect s/t anesthesia. Improved at this time. -Zofran as needed. -ADAT. Acute renal failure Suspect s/t dehydration from N/V. -gentle IVFs as pt has a history of CHF. -continue Babb, follow up with urology as scheduled. -continue ceftriaxone. Was on Keflex as an outpt. Chronic systolic heart failure Echo with EF 35-40% in 2014. Recently had another echo. -monitor volume status while on IVFs. -trend trops. -continue cardiac regimen. -check a BNP. Leukocytosis May be reactive. -follow CBC. -continue ceftriaxone. -check UA. PPx: Heparin infusion Code Status: Full Overall impression: This gentleman is critically ill with marginal pulmonary and cardiac status. He has been further stressed by an acute exacerbation of his chronic hypoxemic respiratory failure and may well require intubation and mechanical ventilation. We will treat the mismatches on his VQ scan as acute emboli and continue full anticoagulation with heparin. He has some minor hematuria related to recent bladder biopsies and arrived to the hospital with a Babb catheter in place. His breathing is modestly improved today but he continues at high risk due largely to his underlying pulmonary. Critical care 35 minutes
[2018-08-19] MEDS ORDERED: Potassium Chlor 20 mEq Premix 20 MEQ/100 ML PIGGYBACK IV.SIG ONE (17:00)
[2018-08-19] MEDS ORDERED: Potassium Chloride Inj 20 MEQ/10 ML Vial IV.SIG ONE (17:00)
[2018-08-19] MEDS ORDERED: Amiodarone Inj 150 MG in Dextrose 5% in Water Inj 97 ML IV.SIG ONE ×4 (20:00→21:00)
[2018-08-20] MEDS: Heparin Drip 25,000 UNIT/250 ML BAG IV.CONT PRN (01:31)
[2018-08-20 04:56] LABS: Hematocrit 41.9 % (39.0-51.0); Hemoglobin 14.1 gm/dL (13.0-17.0); Mean Corpuscular HGB Conc 33.7 % (32.0-36.0); Mean Corpuscular Hemoglobin 31.7 pg (27.0-34.0); Mean Corpuscular Volume 94.2 fL (80.0-100.0); Mean Platelet Volume 10.5 fL (7.0-11.0); Platelet Count 111 th/mm3 (150-450); Red Blood Count 4.44 mil/mm3 (4.50-5.90); Red Cell Distribution Width 14.3 % (11.6-17.2)
[2018-08-20 05:19] LABS: Calcium 8.4 mg/dL (8.5-10.1); Carbon Dioxide 25.6 meq/L (21.0-32.0); Potassium 3.6 meq/L (3.5-5.1)
[2018-08-20] MEDS: Sod Chloride 0.9% Inj 1,000 ML IV.CONT SCH (08:00)
[2018-08-20] MEDS: Senna/Docusate Sodium 8.6/50 MG Tablet PO SCH ×2 (09:23→20:30)
[2018-08-20] MEDS: Metoprolol Tartrate 25 MG Tablet PO SCH ×2 (09:23→20:29)
[2018-08-20] MEDS: Azithromycin 250 MG Tablet PO SCH (09:23)
[2018-08-20] MEDS: amLODIPine 10 MG Tablet PO SCH (09:23)
[2018-08-20] MEDS: Budesonide-Formoterol 80/4.5 MCG 6.9 GM Inhaler INH SCH ×2 (09:27→20:30)
--- NOTE | 2018-08-20 14:50 | P.PNCC ---
Subjective Subjective Remarks/Hospital Course: The patient arrived to ED complaining of nausea and vomiting. The day prior he had a cystoscopy under anesthesia and had multiple polyps removed. He left the outpatient urology center with a Babb catheter. He woke up this morning with vomiting. He denies abdominal pain or fever. He is not short of breath or having any chest pain or pleuritic symptoms but he does have very poor room air saturations of 81. He is significantly hypoxic. He does have COPD denies productive cough or wheezing. He no longer smokes he does use inhalers at home. No alleviating factors. No exacerbating factors. 08/18: Worsening hypoxemia today requiring NRBM. V/Q scan is medium probability for pulmonary embolism after identifying bilateral upper lobe mismatches consistent with pulmonary embolus. Transferred to [facility] for higher level of care. Heparin gtt infusing. I met him on his arrival and talk to Dr. Joseph about his care. He is presently on a Ventimask delivering 45% oxygen with saturation in the range of 90-91 percent. He is warm and well-perfused. 08/19: Breathing with better comfort today. Down to 4 L nasal cannula. Wine colored urine persists, unsurprising considering full anticoagulation following bladder biopsy. I am reluctant to convert to an oral anticoagulant until such time as we have a better feel for the trends of his bladder bleeding. 08/20: Breathing more comfortably today. Remains in atrial fibrillation and amiodarone has been added. Rate is well controlled and were trying to get him to convert. He is presently on a heparin drip infusion because of a VQ scan consistent with medium probability bilateral upper lobe pulmonary emboli. We have not converted to oral anticoagulant yet because he is still bleeding from his bladder following a bladder biopsy several days ago as an outpatient. Objective Vital Signs / I&O: Vital Signs 08/19/18 15:59 08/19/18 16:00 08/19/18 19:52 Temperature 98.4 F Pulse Rate 119 H 148 H 130 H Respiratory Rate 14 24 16 Blood Pressure 120/74 Pulse Oximetry 91 L 08/19/18 20:00 08/20/18 00:00 08/20/18 04:00 Temperature 98.1 F 97.6 F 98 F Pulse Rate 144 H 104 H 110 H Respiratory Rate 19 20 13 Blood Pressure 112/76 132/85 145/86 H Pulse Oximetry 92 L 94 L 94 L 11/04/18 07:51 08/20/18 08:00 08/20/18 12:00 Temperature 97.8 F 98.4 F Pulse Rate 114 H 112 H 102 H Respiratory Rate 14 16 18 Blood Pressure 136/86 109/65 Pulse Oximetry 94 L 97 92 L Intake & Output 08/19/18 08/20/18 08/20/18 19:59 06:59 18:59 Intake Total 1000 / 1000 Output Total Balance 1000 / 1000 Weight Intake: IV 1000 / 1000 Cordarone Inj 450 MG In D5W Inj 241 ML @ 1 MG/MIN 33.33 mls/hr IV.CONT TITRATE PRN Rx#: [id number] Heparin/D5W 25,000 U/250 mL 25, 000 unit In 250 ml @ 1,500 UNITS/HR 15 mls/hr IV.CONT TITRATE PRN Rx#:[id number] NS Inj 1,000 ML @ 50 mls/hr IV. 1000 / 1000 CONT .Q20H FLO Rx#:[id number] Cordarone Inj 150 MG In D5W Inj 97 ML @ 600 mls/hr IV.SIG ONCE ONE Rx#:[id number] KCl 20 mEq Premix Inj 20 meq In 100 ml @ 50 mls/hr IV.SIG ONCE ONE Rx#:[id number] Rocephin Inj 2,000 MG In NS Inj 100 ML @ 200 mls/hr IV.SIG Q24H [facility] Rx#:[id number] Oral Output: Urine Amount (Catheter) Indwelling Urethral Catheter Other: Date of Last Bowel Movement 08/20/18 # Bowel Movements Result Diagrams: 08/20/18 04:20 08/20/18 04:20 Objective Remarks: Narrative: GENERAL: Alert elderly patient in minimal respiratory distress. SKIN: Focused skin assessment reveals no rash or nodules. Skin is Warm and dry. HEAD: Atraumatic. Normocephalic. EYES: Pupils equal and round. No conjunctival icterus. No injection or drainage. ENT: No nasal bleeding or discharge. Mucous membranes pink and moist. NECK: Trachea midline. Airway widely patent, no stridor or obstructive noises. CARDIOVASCULAR: Regular rate and rhythm. No murmur appreciated. No JVD. RESPIRATORY: Minimal accessory muscle use. No wheezes. Decreased breath sounds bilaterally. GASTROINTESTINAL: Abdomen soft, non-tender, nondistended. No guarding, bowel sounds active MUSCULOSKELETAL: He has had a left BKA. No clubbing. No cyanosis. No edema. Nailbeds remain pink. NEUROLOGICAL: Awake and alert. No obvious cranial nerve deficits. Motor grossly within normal limits. Normal speech. Oriented x3. PSYCHIATRIC: Appropriate mood and affect; insight and judgment normal. Much more calm today. Assessment and Plan - Assessment and Plan Plan: Assessment and Plan - Plan Acute hypoxemic respiratory failure. COPD, not exacerbated -oxygen delivery Via Ventimask and standing nebs. -check an ABG. -V/Q scan - medium probability -incentive spirometry. -4 L NC -Remains on heparin drip infusion. Not converted to oral anticoagulation because he continues to have gross hematuria. Nausea and vomiting Started following urology procedure, suspect s/t anesthesia. Improved at this time. -Zofran as needed. -ADAT. Acute renal failure Suspect s/t dehydration from N/V. -gentle IVFs as pt has a history of CHF. -continue Babb, follow up with urology as scheduled. -continue ceftriaxone. Was on Keflex as an outpt. Chronic systolic heart failure Echo with EF 35-40% in 2014. Recently had another echo. -monitor volume status while on IVFs. -trend trops. -continue cardiac regimen. -check a BNP. Leukocytosis May be reactive. -follow CBC. -continue ceftriaxone. -check UA. PPx: Heparin infusion Code Status: Full Overall impression: This gentleman is critically ill with marginal pulmonary and cardiac status. He has been further stressed by an acute exacerbation of his chronic hypoxemic respiratory failure and may well require intubation and mechanical ventilation. We will treat the mismatches on his VQ scan as acute emboli and continue full anticoagulation with heparin. He has some minor hematuria related to recent bladder biopsies and arrived to the hospital with a Babb catheter in place. His breathing is modestly improved today but he continues at high risk due largely to his underlying pulmonary. Critical care 38 minutes
[2018-08-20] MEDS: Amiodarone 200 MG Tablet PO SCH (22:00)
[2018-08-21] MEDS: Heparin Drip 25,000 UNIT/250 ML BAG IV.CONT PRN ×2 (00:24→23:16)
[2018-08-21] MEDS: Sod Chloride 0.9% Inj 1,000 ML IV.CONT SCH ×2 (04:37→21:49)
[2018-08-21 05:52] LABS: Baso % (Auto) 0.6 % (0.0-2.0); Eos # (Auto) 0.2 th/mm3 (0.0-0.4); Eos % (Auto) 2.9 % (0.0-4.0); Hematocrit 39.8 % (39.0-51.0); Hemoglobin 13.3 gm/dL (13.0-17.0); Lymph % (Auto) 13.7 % (9.0-44.0); Mean Corpuscular HGB Conc 33.5 % (32.0-36.0); Mean Corpuscular Hemoglobin 31.7 pg (27.0-34.0); Mean Corpuscular Volume 94.7 fL (80.0-100.0); Mean Platelet Volume 10.3 fL (7.0-11.0); Neut # (Auto) 5.3 th/mm3 (1.8-7.7); Neut % (Auto) 69.8 % (16.0-70.0); Platelet Count 131 th/mm3 (150-450); Red Cell Distribution Width 14.3 % (11.6-17.2); White Blood Count 7.6 th/mm3 (4.0-11.0)
[2018-08-21 06:19] LABS: Calcium 8.4 mg/dL (8.5-10.1); Potassium 3.7 meq/L (3.5-5.1)
[2018-08-21] MEDS: Metoprolol Tartrate 25 MG Tablet PO SCH ×2 (08:32→20:15)
[2018-08-21] MEDS: amLODIPine 10 MG Tablet PO SCH (08:32)
[2018-08-21] MEDS: Senna/Docusate Sodium 8.6/50 MG Tablet PO SCH ×2 (08:33→20:15)
[2018-08-21] MEDS: Azithromycin 250 MG Tablet PO SCH (08:33)
[2018-08-21] MEDS: Budesonide-Formoterol 80/4.5 MCG 6.9 GM Inhaler INH SCH ×2 (08:34→20:16)
[2018-08-21] MEDS: Amiodarone 200 MG Tablet PO SCH (08:40)
--- NOTE | 2018-08-21 15:30 | P.PNIM ---
Subjective Interval history: 77-year-old male admitted with respiratory failure and found to have pulmonary embolism bilaterally. He is recovering well, on a heparin drip, saturating at 91% on 3 L of oxygen nasal cannula. He would like to go home today but I explained he is not quite at a place where I could send him home safely. He was willing to stay until the discharge is safe. Physical Exam Vital signs: Vital Signs 08/20/18 16:00 08/20/18 20:00 08/20/18 20:08 Temperature 98.3 F 98.2 F Pulse Rate 108 H 110 H 114 H Respiratory Rate 21 16 16 Blood Pressure 138/62 140/75 Pulse Oximetry 92 L 92 L 08/20/18 23:26 08/21/18 00:00 08/21/18 02:00 Temperature 98 F Pulse Rate 104 H 96 H Respiratory Rate 18 20 13 Blood Pressure 112/72 Pulse Oximetry 90 L 93 L 08/21/18 02:08 08/21/18 03:00 08/21/18 03:08 Temperature Pulse Rate 95 H 99 H 100 H Respiratory Rate 14 10 L 18 Blood Pressure 115/69 131/78 Pulse Oximetry 92 L 94 L 95 08/21/18 04:00 08/21/18 04:08 08/21/18 05:00 Temperature 98.2 F Pulse Rate 105 H 105 H 108 H Respiratory Rate 11 L 18 25 H Blood Pressure 135/81 Pulse Oximetry 92 L 92 L 92 L 08/21/18 05:08 08/21/18 06:00 08/21/18 06:08 Temperature Pulse Rate 104 H 106 H 103 H Respiratory Rate 19 11 L 12 Blood Pressure 126/76 122/69 Pulse Oximetry 92 L 93 L 94 L 08/21/18 07:00 08/21/18 07:08 08/21/18 08:00 Temperature Pulse Rate 102 H 102 H 103 H Respiratory Rate 11 L 10 L 12 Blood Pressure 140/74 Pulse Oximetry 95 94 L 95 08/21/18 08:08 08/21/18 08:45 08/21/18 09:00 Temperature 98.0 F Pulse Rate 102 H 108 H 112 H Respiratory Rate 10 L 22 24 Blood Pressure 144/73 H Pulse Oximetry 92 L 95 94 L 08/21/18 09:08 08/21/18 10:00 08/21/18 10:08 Temperature Pulse Rate 116 H 101 H 103 H Respiratory Rate 38 H 15 35 H Blood Pressure 136/79 112/84 Pulse Oximetry 91 L 89 L 88 L 08/21/18 11:00 08/21/18 11:08 08/21/18 12:00 Temperature Pulse Rate 100 H 99 H 100 H Respiratory Rate 22 24 24 Blood Pressure 118/59 L Pulse Oximetry 87 L 88 L 89 L 08/21/18 12:08 08/21/18 13:00 08/21/18 13:08 Temperature Pulse Rate 100 H 106 H 104 H Respiratory Rate 22 16 15 Blood Pressure 117/60 127/79 Pulse Oximetry 90 L 84 L 90 L 08/21/18 14:14 Temperature Pulse Rate 108 H Respiratory Rate 23 Blood Pressure Pulse Oximetry Intake & Output 08/20/18 08/21/18 08/21/18 18:59 06:59 18:59 Intake Total 1520 / 1520 2220 / 2220 100 / 100 Output Total 650 / 650 600 / 600 Balance 870 / 870 1620 / 1620 100 / 100 Weight 85.1 kg Intake: IV 1100 / 1100 1500 / 1500 100 / 100 Cordarone Inj 450 MG In D5W Inj 250 / 250 241 ML @ 1 MG/MIN 33.33 mls/hr IV.CONT TITRATE PRN Rx#: [id number] Heparin/D5W 25,000 U/250 mL 25, 250 / 250 000 unit In 250 ml @ 1,500 UNITS/HR 15 mls/hr IV.CONT TITRATE PRN Rx#:[id number] NS Inj 1,000 ML @ 50 mls/hr IV. 1000 / 1000 1000 / 1000 CONT .Q20H FLO Rx#:[id number] Rocephin Inj 2,000 MG In NS Inj 100 / 100 100 / 100 100 ML @ 200 mls/hr IV.SIG Q24H [facility] Rx#:[id number] Oral 420 / 420 720 / 720 Output: Urine Amount (Catheter) 650 / 650 600 / 600 Indwelling Urethral Catheter 650 / 650 600 / 600 Other: Date of Last Bowel Movement 08/20/18 08/21/18 08/21/18 Narrative: GENERAL: AAOx3, no acute distress SKIN: Warm and dry. No rashes HEAD: Atruamtic, normocephalic. EYES: No scleral icterus. No injection or drainage. ENT: Moist mucous membranes, patent nares, no erythema of oropharynx. NECK: Supple, trachea midline. No JVD or lymphadenopathy. Normal thyroid. CARDIOVASCULAR: Regular rate and rhythm. No murmurs, gallops, or rubs. RESPIRATORY: Scattered congestive sounds in bilateral lungs. No crackles or wheezes. No accessory muscle use. GASTROINTESTINAL: Abdomen soft, non-tender, nondistended, normal active bowel sounds MUSCULOSKELETAL: No cyanosis, or edema. Left lower extremity BKA NEURO: CN II-XII grossly intact, no focal deficits, no slurring of speech - Urinary Catheter Management Indwelling Urethral Catheter Cath placed during this visit: no Reason for continuing: Other continuation reason Results - Labs CBC & Chem 7: 08/21/18 04:57 08/21/18 04:57 Laboratory Results - last 24 hr 08/21/18 08/21/18 08/21/18 04:57 04:57 08:17 WBC 7.6 RBC 4.20 L Hgb 13.3 Hct 39.8 MCV 94.7 MCH 31.7 MCHC 33.5 RDW 14.3 Plt Count 131 L MPV 10.3 Neut % (Auto) 69.8 Lymph % (Auto) 13.7 [place] % (Auto) 13.0 H Eos % (Auto) 2.9 Baso % (Auto) 0.6 Neut # (Auto) 5.3 Lymph # (Auto) 1.0 [place] # (Auto) 1.0 H Eos # (Auto) 0.2 Baso # (Auto) 0.0 WBC Differential . Differential Comment Auto diff final APTT Sodium 141 Potassium 3.7 Chloride 107 Carbon Dioxide 24.0 Anion Gap 10 BUN 26 H Creatinine 1.89 H Estimated GFR 35 L POC Glucose 78 Random Glucose 87 Calcium 8.4 L 08/21/18 08/21/18 09:01 11:44 WBC RBC Hgb Hct MCV MCH MCHC RDW Plt Count MPV Neut % (Auto) Lymph % (Auto) [place] % (Auto) Eos % (Auto) Baso % (Auto) Neut # (Auto) Lymph # (Auto) [place] # (Auto) Eos # (Auto) Baso # (Auto) WBC Differential Differential Comment APTT 34.8 H D Sodium Potassium Chloride Carbon Dioxide Anion Gap BUN Creatinine Estimated GFR POC Glucose 101 Random Glucose Calcium Assessment and Plan - Plan Acute respiratory failure Secondary to bilateral pulmonary emboli Patient also has COPD which is not the primary reason for his respiratory failure Continue on heparin drip Continue supportive care with oxygen via nasal cannula, incentive spirometry, duo nebs as needed Acute renal failure Mild improvement following rehydration Continue Babb per urology Continue Rocephin Chronic systolic heart failure Echo with EF 35-40% in 2014. Normal troponin trend Borderline elevation of BNP Monitor for fluid overload, supportive care Nausea and vomiting Presenting complaint, now resolved DVT Prophylaxis Heparin drip
[2018-08-22] MEDS: Sod Chloride 0.9% Inj 1,000 ML IV.CONT SCH ×3 (01:45→22:51)
[2018-08-22] MEDS: Budesonide-Formoterol 80/4.5 MCG 6.9 GM Inhaler INH SCH ×2 (08:24→20:14)
[2018-08-22] MEDS: Azithromycin 250 MG Tablet PO SCH (08:25)
[2018-08-22] MEDS: Senna/Docusate Sodium 8.6/50 MG Tablet PO SCH ×2 (08:25→20:14)
[2018-08-22] MEDS: amLODIPine 10 MG Tablet PO SCH (08:25)
[2018-08-22] MEDS: Amiodarone 200 MG Tablet PO SCH (08:25)
[2018-08-22] MEDS: Metoprolol Tartrate 25 MG Tablet PO SCH ×2 (08:26→20:14)
--- NOTE | 2018-08-22 18:55 | P.PNIM ---
Subjective Interval history: Patient is resting comfortably in his bed, wants to go home. Still depending on 5 L of oxygen via nasal cannula. He has scant hematuria and is requesting removal of his urinary catheter comfort. Physical Exam Vital signs: Vital Signs 08/21/18 20:00 08/21/18 20:17 08/21/18 22:30 Temperature 98.8 F Pulse Rate 107 H 98 H Respiratory Rate 21 Blood Pressure 143/86 H Pulse Oximetry 90 L 90 L 08/22/18 00:00 08/22/18 04:00 08/22/18 07:54 Temperature 97.4 F L 97.4 F L Pulse Rate 98 H 103 H 108 H Respiratory Rate 20 21 Blood Pressure 118/79 127/78 Pulse Oximetry 93 L 90 L 08/22/18 08:00 08/22/18 10:55 08/22/18 11:53 Temperature 97.6 F Pulse Rate 112 H 105 H Respiratory Rate 20 Blood Pressure 147/88 H Pulse Oximetry 91 L 92 L 08/22/18 12:00 08/22/18 16:00 Temperature 98.0 F 97.7 F Pulse Rate 101 H 104 H Respiratory Rate 20 20 Blood Pressure 120/72 132/81 Pulse Oximetry 92 L 92 L Intake & Output 08/21/18 08/22/18 08/22/18 18:59 06:59 18:59 Intake Total 1120 / 1120 1490 / 1490 1100 / 1100 Output Total 700 / 700 550 / 550 2650 / 2650 Balance 420 / 420 940 / 940 -1550 / -1550 Weight 85.1 kg Intake: IV 100 / 100 1250 / 1250 1100 / 1100 Heparin/D5W 25,000 U/250 mL 25, 250 / 250 000 unit In 250 ml @ 1,500 UNITS/HR 15 mls/hr IV.CONT TITRATE PRN Rx#:[id number] NS Inj 1,000 ML @ 50 mls/hr IV. 1000 / 1000 1000 / 1000 CONT .Q20H FLO Rx#:[id number] Rocephin Inj 2,000 MG In NS Inj 100 / 100 100 / 100 100 ML @ 200 mls/hr IV.SIG Q24H [facility] Rx#:[id number] Oral 1020 / 1020 240 / 240 Output: Urine 550 / 550 Urine Amount (Catheter) 700 / 700 550 / 550 2100 / 2100 Indwelling Urethral Catheter 700 / 700 550 / 550 2099 Other: Date of Last Bowel Movement 08/20/18 08/20/18 08/22/18 Narrative: GENERAL: AAOx3, no acute distress SKIN: Warm and dry. No rashes HEAD: Atruamtic, normocephalic. EYES: No scleral icterus. No injection or drainage. ENT: Moist mucous membranes, patent nares, no erythema of oropharynx. NECK: Supple, trachea midline. No JVD or lymphadenopathy. Normal thyroid. CARDIOVASCULAR: Regular rate and rhythm. No murmurs, gallops, or rubs. RESPIRATORY: Scattered congestive sounds in bilateral lungs. No crackles or wheezes. No accessory muscle use. GASTROINTESTINAL: Abdomen soft, non-tender, nondistended, normal active bowel sounds MUSCULOSKELETAL: No cyanosis, or edema. Left lower extremity BKA NEURO: CN II-XII grossly intact, no focal deficits, no slurring of speech - Urinary Catheter Management Indwelling Urethral Catheter Cath placed during this visit: yes, but has since been removed by the nurse Reason for continuing: Decision to DC catheter Removal date: 08/22/18 Removal time: 15:45 Results - Labs CBC & Chem 7: 08/21/18 04:57 08/21/18 04:57 Laboratory Results - last 24 hr 08/21/18 08/22/18 20:49 10:39 APTT 47.5 H 50.1 H Assessment and Plan - Plan Acute respiratory failure Secondary to bilateral pulmonary emboli Patient also has COPD which is not the primary reason for his respiratory failure Continue supplemental oxygen, incentive spirometry, duo nebs as needed Still requiring 5 L of oxygen via nasal cannula His tachycardia seems near his baseline, old records are reviewed showing heart rate between 85 and 102 in 2015 admission Continue to wean from supplemental oxygen Continue heparin drip Hematuria Patient underwent bladder biopsy approximately 1 week ago, catheter placed at that time recommending 1 week His urine is free from clots, scant hematuria present, patient requesting catheter be removed Catheter was removed will follow output Acute renal failure Mild improvement following rehydration Continue Babb per urology Continue Rocephin Chronic systolic heart failure Echo with EF 35-40% in 2015. Normal troponin trend Borderline elevation of BNP Monitor for fluid overload, supportive care Nausea and vomiting Presenting complaint, now resolved DVT Prophylaxis Heparin drip
[2018-08-22] MEDS: Heparin Drip 25,000 UNIT/250 ML BAG IV.CONT PRN (20:15)
[2018-08-23 07:02] LABS: Calcium 8.6 mg/dL (8.5-10.1); Carbon Dioxide 26.3 meq/L (21.0-32.0); Potassium 3.2 meq/L (3.5-5.1)
[2018-08-23] MEDS: Azithromycin 250 MG Tablet PO SCH (08:30)
[2018-08-23] MEDS: amLODIPine 10 MG Tablet PO SCH (08:30)
[2018-08-23] MEDS: Senna/Docusate Sodium 8.6/50 MG Tablet PO SCH ×2 (08:31→22:02)
[2018-08-23] MEDS: Amiodarone 200 MG Tablet PO SCH (08:31)
[2018-08-23] MEDS: Metoprolol Tartrate 25 MG Tablet PO SCH ×2 (08:31→22:02)
[2018-08-23] MEDS: Budesonide-Formoterol 80/4.5 MCG 6.9 GM Inhaler INH SCH ×2 (08:32→22:02)
[2018-08-23] MEDS: Sod Chloride 0.9% Inj 1,000 ML IV.CONT SCH (17:12)
--- NOTE | 2018-08-23 17:17 | P.DS ---
Date of admission: 08/17/18 14:07 Primary care physician: Collin Rodriguez Brief History from admission: The patient is a 77-year-old male with a past medical history of CAD, PVD and COPD who is presenting to the hospital with nausea and vomiting. The patient said that he had a procedure with his urologist yesterday where he was cleaned out and had some polyps removed. He was discharged home with a Babb catheter in place that was supposed to remain for 5 days. Shortly after the procedure the patient developed nausea and vomiting. He said he had 8 bouts of vomiting and he described the vomitus as black in color. He said that he was unable to eat yesterday and was unable to hold pills down yesterday. He denied any associated abdominal pain or diarrhea. He called the urologist's office and was told to go to the hospital. He came to the emergency department today and felt much better after receiving IV fluids and nausea medication. The patient states that his breathing has been bad for about the past month or so. He says his primary care doctor gave him an inhaler. He denies any cough or fevers. He denies any swelling in his lower extremities. He has been sleeping well at night. He denies any shortness of breath on exertion. He says prior to the urological procedure yesterday he required an ultrasound of the heart which he had done as an outpatient. DS: Medications - Discharge Medications Prescriptions: amiodarone 200 mg PO DAILY 30 Days #30 tab apixaban [Eliquis] 5 mg PO BID #60 tab apixaban [Eliquis] 1 tab PO PER [facility] DIR #[id number] [id number] DS: Summary Hospital Course: 77-year-old male who spent a few days in the ICU after presenting to the ER in respiratory failure secondary to bilateral pulmonary emboli. He has a history of smoking 1-1/2 packs/day for 35 years. He underwent bladder biopsy approximately 2 weeks ago and feels that his clots are related to that. He did stop the Plavix he was previously on prior to that procedure and that probably have more to do with it, combined with his peripheral artery disease. He has a history of leg amputation. Since I met him 2 days ago he has been asking me to go home. Today he did an oxygen walk test and dropped to 75% oxygenation after ambulating 120 feet. He was able to maintain his oxygen at 85% while on 6 L nasal cannula. He does have a history of COPD so is likely his typical resting oxygen is lower than average. He denies any feeling of dizziness or passing out during the walk. He requested that I prepared discharge in the case that he is ready tomorrow. - Time Spent with Patient Total time spent providing and/or coordinating discharge services: Less than 30 minutes - Quality: VTE Deep Vein Thrombosis/Pulmonary Embolism Present on Admission: No Exam Vital signs: Vital Signs 08/22/18 20:00 08/23/18 00:00 08/23/18 04:00 Temperature 98.3 F 97.8 F 97.9 F Pulse Rate 99 H 109 H 106 H Respiratory Rate 21 18 18 Blood Pressure 150/86 H 142/93 H 135/92 H Pulse Oximetry 91 L 93 L 93 L Pulse Oximetry [Exertion on Room Air] Pulse Oximetry [Exertion with Oxygen] Pulse Oximetry [Resting on Room Air] Pulse Oximetry [Resting with Oxygen] 08/23/18 08:00 08/23/18 12:00 08/23/18 12:11 Temperature 97.9 F 97.9 F Pulse Rate 107 H 99 H 103 H Respiratory Rate 20 20 20 Blood Pressure 143/91 H 133/67 Pulse Oximetry 93 L 94 L Pulse Oximetry [Exertion on Room Air] Pulse Oximetry [Exertion with Oxygen] Pulse Oximetry [Resting on Room Air] Pulse Oximetry [Resting with Oxygen] 08/23/18 15:16 08/23/18 16:00 Temperature Pulse Rate 102 H Respiratory Rate Blood Pressure Pulse Oximetry Pulse Oximetry [Exertion on Room Air] 76 L Pulse Oximetry [Exertion with Oxygen] 88 L Pulse Oximetry [Resting on Room Air] 92 L Pulse Oximetry [Resting with Oxygen] 93 L Intake & Output 08/22/18 08/23/18 08/23/18 18:59 06:59 18:59 Intake Total 1100 / 1100 1490 / 1490 1100 / 1100 Output Total 2650 / 2650 1250 / 1250 Balance -1550 / -1550 240 / 240 1100 / 1100 Weight 84.4 kg Intake: IV 1100 / 1100 1250 / 1250 1100 / 1100 Heparin/D5W 25,000 U/250 mL 25, 250 / 250 000 unit In 250 ml @ 1,500 UNITS/HR 15 mls/hr IV.CONT TITRATE PRN Rx#:[id number] NS Inj 1,000 ML @ 50 mls/hr IV. 1000 / 1000 1000 / 1000 1000 / 1000 CONT .Q20H FLO Rx#:[id number] Rocephin Inj 2,000 MG In NS Inj 100 / 100 100 / 100 100 ML @ 200 mls/hr IV.SIG Q24H [facility] Rx#:[id number] Oral 240 / 240 Output: Urine 550 / 550 1250 / 1250 Urine Amount (Catheter) 2099 Indwelling Urethral Catheter 2099 Other: Date of Last Bowel Movement 08/22/18 08/23/18 08/23/18 # Bowel Movements 1 Results Procedures completed during hospitalization: none Labs on day of discharge: Labs from last 24 hours 08/23/18 08/23/18 05:25 05:25 APTT 46.1 H Sodium 143 Potassium 3.2 L Chloride 107 Carbon Dioxide 26.3 Anion Gap 10 BUN 13 Creatinine 0.96 Estimated GFR 76 L Random Glucose 112 H Calcium 8.6 - Impressions ITS Impressions Pulmonary Perfusion Imaging 08/17/18 00:00 CONCLUSION: 1. Intermediate probability for pulmonary embolism with matching nonsegmental defects in both upper lobes. 2. There is moderate central deposition of radiopharmaceutical on the ventilatory study indicating underlying lung disease. Chest X-Ray 08/18/18 08:37 CONCLUSION: 1. Improved positive fluid balance. 2. Persistent mild bibasilar airspace disease, presumably atelectasis. Discharge Plan - Discharge Disposition Patient Disposition: 03 Discharge to SNF - Discharge Condition Condition: Good - Discharge Order Discharge Orders: Discharge Order (Routine); Ordered 08/24/18 Ordered By: Braxton Fay - Discharge Details Anticipated Discharge Date: 08/24/18 - Physicians Team Primary Care Provider: Collin Rodriguez Attending Provider: Braxton Fay Other Providers: Morris Ling MD ; [employer] ; Yeyo Limon MD
[2018-08-23] MEDS: Heparin Drip 25,000 UNIT/250 ML BAG IV.CONT PRN (19:10)
[2018-08-24] MEDS: Metoprolol Tartrate 25 MG Tablet PO SCH (09:43)
[2018-08-24] MEDS: Azithromycin 250 MG Tablet PO SCH (09:43)
[2018-08-24] MEDS: amLODIPine 10 MG Tablet PO SCH (09:43)
[2018-08-24] MEDS: Senna/Docusate Sodium 8.6/50 MG Tablet PO SCH (09:43)
[2018-08-24] MEDS: Amiodarone 200 MG Tablet PO SCH (09:43)
[2018-08-24] MEDS: Budesonide-Formoterol 80/4.5 MCG 6.9 GM Inhaler INH SCH (09:44)
[2018-08-24 10:06] VITALS: BP 133/87; RESP 18; TEMP 97.5
--- NOTE | 2018-08-24 10:48 | P.PN ---
Subjective Interval history: Follow up for acute respiratory failure, bilateral PE. The patient reports overall feeling well and wants to go home. Oxygen currently being delivered to the room. He denies any significant shortness of breath. Denies any chest pain. No new medical complaints today. Physical Exam Vital signs: Vital Signs 08/23/18 12:00 08/23/18 12:11 08/23/18 15:16 Temperature 97.9 F Pulse Rate 99 H 103 H Respiratory Rate 20 20 Blood Pressure 133/67 Pulse Oximetry 94 L Pulse Oximetry [Exertion on Room Air] 76 L Pulse Oximetry [Exertion with Oxygen] 88 L Pulse Oximetry [Resting on Room Air] 92 L Pulse Oximetry [Resting with Oxygen] 93 L 08/23/18 16:00 08/23/18 20:00 08/24/18 00:00 Temperature 97.8 F 97.8 F 98.1 F Pulse Rate 102 H 101 H 95 H Respiratory Rate 20 22 20 Blood Pressure 141/79 H 146/87 H 142/81 H Pulse Oximetry 92 L 92 L 93 L Pulse Oximetry [Exertion on Room Air] Pulse Oximetry [Exertion with Oxygen] Pulse Oximetry [Resting on Room Air] Pulse Oximetry [Resting with Oxygen] 08/24/18 04:00 08/24/18 08:00 Temperature 97.8 F 97.5 F L Pulse Rate 100 H 101 H Respiratory Rate 20 18 Blood Pressure 137/81 133/87 Pulse Oximetry 93 L 94 L Pulse Oximetry [Exertion on Room Air] Pulse Oximetry [Exertion with Oxygen] Pulse Oximetry [Resting on Room Air] Pulse Oximetry [Resting with Oxygen] Intake & Output 08/23/18 08/24/18 08/24/18 18:59 06:59 18:59 Intake Total 2049 / 2049 491 / 491 Output Total 1150 / 1150 1200 / 1200 Balance 899 / 899 -709 / -709 Weight 82.3 kg Intake: IV 1329 / 1329 Heparin/D5W 25,000 U/250 mL 25, 229 / 229 000 unit In 250 ml @ 1,500 UNITS/HR 15 mls/hr IV.CONT TITRATE PRN Rx#:[id number] NS Inj 1,000 ML @ 50 mls/hr IV. 1000 / 1000 CONT .Q20H FLO Rx#:[id number] Rocephin Inj 2,000 MG In NS Inj 100 / 100 100 ML @ 200 mls/hr IV.SIG Q24H FLO Rx#:[id number] Oral 720 / 720 470 / 470 Output: Urine 1150 / 1150 1200 / 1200 Other: Date of Last Bowel Movement 08/23/18 08/23/18 # Bowel Movements 2 1 Narrative: GENERAL: Well-nourished, well-developed pleasant elderly male patient in NAD. SKIN: Warm and dry. No rash. HEENT: Normocephalic. Atraumatic. Pupils equal and round. Mucous membranes pink and moist. CARDIOVASCULAR: Regular rate and rhythm. No murmur appreciated. RESPIRATORY: No accessory muscle use. Clear to auscultation. Breath sounds equal bilaterally. GASTROINTESTINAL: Abdomen soft, non-tender, nondistended. Normoactive bowel sounds x4. 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 Extremities without clubbing , cyanosis, or edema. NEUROLOGICAL: Awake and alert. No obvious cranial nerve deficits. Moving all extremities spontaneously. Normal speech. PSYCHIATRIC: Appropriate mood and affect; insight and judgment normal. - Urinary Catheter Management Indwelling Urethral Catheter Cath placed during this visit: yes, but has since been removed by the nurse Reason for continuing: Decision to DC catheter Removal date: 08/22/18 Removal time: 15:45 Results - Labs CBC & Chem 7: 08/21/18 04:57 08/23/18 05:25 - Imaging Pulmonary Perfusion Imaging 08/17/18 00:00 CONCLUSION: 1. Intermediate probability for pulmonary embolism with matching nonsegmental defects in both upper lobes. 2. There is moderate central deposition of radiopharmaceutical on the ventilatory study indicating underlying lung disease. Chest X-Ray 08/17/18 11:00 CONCLUSION: Lower lobe atelectasis. No acute infiltrate or mass Chest X-Ray 08/18/18 08:37 CONCLUSION: 1. Improved positive fluid balance. 2. Persistent mild bibasilar airspace disease, presumably atelectasis. - Procedures none Assessment and Plan - Plan Acute respiratory failure Secondary to bilateral pulmonary emboli Patient also has underlying COPD however is not the primary reason for his respiratory failure Continue supplemental oxygen, incentive spirometry, duo nebs as needed His tachycardia seems near his baseline, old records are reviewed showing heart rate between 85 and 102 in 2015 admission On 4 L of oxygen via nasal cannula, failed home O2 walk test, oxygen being arranged prior to discharge S/p heparin drip, transition to Eliquis 5mg po bid Stable for discharge Hematuria Patient underwent bladder biopsy approximately 1 week ago, catheter placed at that time recommending 1 week His urine is free from clots, scant hematuria present, patient requested catheter be removed Catheter was removed, patient voiding well Acute renal failure Mild improvement following rehydration Continue Babb per urology Continue Rocephin Chronic systolic heart failure Echo with EF 35-40% in 2014. Normal troponin trend Borderline elevation of BNP Monitor for fluid overload, supportive care Nausea and vomiting Presenting complaint, now resolved DVT Prophylaxis Heparin drip discontinued, started Eliquis Discharge Planning: Patient's discharge delayed on 08/23 secondary to failing home O2 walk test and requiring oxygen arrangements prior to discharge. Oxygen has been delivered today. Patient stable for discharge. See discharge summary from 08/23.
[2018-08-24 11:01] VITALS: O2SAT 93
[2018-08-24 11:51] VITALS: PULSE 102
== END 2018-08-24 12:20 | disposition home or self-care (01) ==
LOC: NEPC 10:02 → NEDA 14:07 → N06 17:20 → N03 08-18 13:49 → N06 08-18 14:05 → N03 08-18 15:00 → N04 08-21 21:13
PROVIDERS: ADMIT Hospitalist; ATTEND Hospitalist